=== PATIENT | male | born 1980 | race Two or more races ===

== ENCOUNTER 2019-12-18 19:42 | Inpatient (IN) | payer SELFPAY ==
[2019-12-18] MEDS ORDERED: ACETAMINOPHEN 325 MG TABLET PO ONE (21:39)
[2019-12-18] MEDS ORDERED: NORMAL SALINE 1000 ML 2,700 ML IV ONE (21:39)
--- NOTE | 2019-12-18 21:48 | ER Document Report ---
ED Respiratory Problem - General Chief Complaint: Cough Stated Complaint: COUGH Time Seen by Provider: 12/18/19 21:02 Mode of Arrival: Ambulatory Information source: Patient Notes: 39-year-old male presented to ED for fever cough congestion fatigue for the last 9 to 10 days. He states having clear and yellow sputum. He states he visited his mother on [address] in [place] and she was sick at the time when he came home he started getting sick within a couple days. He states he spoke with his mother recently and she is feeling better. He states he does have a history of diabetes. States he does not smoke he does occasionally drink but does not use any drugs. 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 He states he normally breathes fine but when he came in today his O2 sat was 90% his temperature was 101.6 with elevated pulse. He states he does have low back pain. He states he took Tyleno l about 2 hours before he came in it that was about 3 hours ago. He states he has vomited off and on for the last for 5 days but has not vomited any today. The patient was evaluated during the global Covid 19 pandemic, and that diagnosis was suspected/considered upon their initial presentation. Their evaluation, treatment and testing was consistent with current guidelines for patients who present with complaints or symptoms that may be related to Covid 19. - HPI Patient complains to provider of: Cough, Short of breath, Other - Fatigue fever and vomiting Onset: Other - 9 to 10 days Duration: Continuous Initiating Event: URI, Other - States he visited his mother in [place] about 2 or 3 days before he started to get sick on the 25th Quality of pain: Achy Severity: Moderate Pain Level: 3 Cough: Productive Sputum amount: Small Sputum color: White, Yellow Sputum consistency: Thin Associated symptoms: Congestion, Cough, Fever, PND, Runny nose, Sinus pain/pressure, Short of breath, Other - Vomiting Similar symptoms previously: No Recently seen / treated by doctor: No Past Medical History - General Information source: Patient - Social History Smoking Status: Never Smoker Frequency of alcohol use: Occasional Drug Abuse: None Occupation: Construction Lives with: Alone Family History: Reviewed & Not Pertinent Patient has suicidal ideation: No Patient has homicidal ideation: No - Past Medical History Cardiac Medical History: Reports: None Pulmonary Medical History: Reports: None EENT Medical History: Reports: None Neurological Medical History: Reports: None Endocrine Medical History: Reports: Hx Diabetes Mellitus Type 2 Renal/ Medical History: Reports: None Malignancy Medical History: Reports None GI Medical History: Reports: None Musculoskeletal Medical History: Reports None Skin Medical History: Reports None Psychiatric Medical History: Reports: None Traumatic Medical History: Reports: None Infectious Medical History: Reports: None Surgical Hx: Negative Past Surgical History: Reports: None Review of Systems - Review of Systems Constitutional: Chills, Fever, Recent illness EENT: Nose congestion, Nose discharge, Sinus discharge Cardiovascular: No symptoms reported Respiratory: Cough, Sputum Gastrointestinal: No symptoms reported Genitourinary: No symptoms reported Male Genitourinary: No symptoms reported Musculoskeletal: Back pain Skin: No symptoms reported Hematologic/Lymphatic: No symptoms reported Neurological/Psychological: No symptoms reported -: Yes All other systems reviewed and negative Physical Exam - Vital signs Vitals: Temp Pulse Resp BP Pulse Ox 101.6 F H 115 H 24 H 101/65 90 L 12/18/19 19:47 12/18/19 19:47 12/18/19 19:47 12/18/19 19:47 12/18/19 19:47 Interpretation: Tachycardic, Hypoxic, Tachypneic, Febrile - General General appearance: Appears well, Alert - HEENT Head: Normocephalic, Atraumatic Eyes: Normal Pupils: PERRL - Respiratory Respiratory status: Cyanosis, Tachypnea Chest status: Nontender Breath sounds: Productive cough, Rales Chest palpation: Normal - Cardiovascular Rhythm: Regular Heart sounds: Normal auscultation Murmur: No - Abdominal Inspection: Normal Distension: No distension Bowel sounds: Normal Tenderness: Nontender Organomegaly: No organomegaly - Back Back: Normal, Nontender - Extremities General upper extremity: Normal inspection, Nontender, Normal color, Normal ROM, Normal temperature General lower extremity: Normal inspection, Nontender, Normal color, Normal ROM, Normal temperature, Normal weight bearing. No: Ruth's sign - Neurological Neuro grossly intact: Yes Cognition: Normal Orientation: AAOx4 Peyton Coma Scale Eye Opening: Spontaneous Peyton Coma Scale Verbal: Oriented Maxim Coma Scale Motor: Obeys Commands Peyton Coma Scale Total: 15 Speech: Normal Motor strength normal: LUE, RUE, LLE, RLE Sensory: Normal - Psychological Associated symptoms: Normal affect, Normal mood - Skin Skin Temperature: Warm Skin Moisture: Dry Skin Color: Normal Course - Re-evaluation Re-evalutation: 12/19/19 00:[address] Arreola the hospitalist who has accepted him for admission to the Covid 19 unit. He is aware of his vital signs and he is positive for influenza A. Patient does have bilateral pneumonia O2 sat is 95 with a pulse of 88 respirations between 30 and 40. Patient is on O2 at 4 L nasal cannula. - Vital Signs Vital signs: Temp Pulse Resp BP Pulse Ox 101.6 F H 115 H 24 H 101/65 90 L 12/18/19 19:47 12/18/19 19:47 12/18/19 19:47 12/18/19 19:47 12/18/19 19:47 - Laboratory Result Diagrams: 12/18/19 22:15 12/18/19 22:15 Laboratory results interpreted by me: 12/18/19 12/18/19 12/18/19 22:15 22:15 23:40 Lymph % (Auto) 12.0 L Seg Neutrophils % 81.7 H VBG pH 7.44 H Sodium 133.6 L Glucose 252 H - Diagnostic Test Radiology reviewed: Image reviewed, Reports reviewed - Consults marlen Time consulted: 00:07 Reason for consultation: 12/19/19 00:07 Bilateral pneumonia, influenza A, tachypneic, and febrile x9 days Consulted provider: will see as inpatient Discharge - Discharge Clinical Impression: Influenza A, covid 19 screening Bilateral pneumonia Qualifiers: Pneumonia type: due to unspecified organism Lung location: unspecified part of lung Qualified Code(s): J18.9 - Pneumonia, unspecified organism Disposition: ADMITTED INPATIENT Admitting Provider: Marlen (Hospitalist) Unit Admitted: Medical Floor
[2019-12-18 22:34] LABS: ABSOLUTE LYMPHOCYTES (AUTO) 1.2 10^3/uL (0.5-4.7); ABSOLUTE MONOCYTES (AUTO) 0.6 10^3/uL (0.1-1.4); ABSOLUTE NEUT (AUTO) 8.1 10^3/uL (1.7-8.2); BASOPHILS % (AUTO) 0.1 % (0-2); HEMATOCRIT 42.9 % (37.9-51.0); HEMOGLOBIN 15.4 g/dL (13.5-17.0); MEAN CORPUSCULAR HEMOGLOBIN 31.5 pg (27.0-33.4); MEAN CORPUSCULAR HGB CONC 35.8 g/dL (32.0-36.0); MEAN CORPUSCULAR VOLUME 88 fl (80-97); MONOCYTES % (AUTO) 6.2 % (3-13); PLATELET COUNT 180 10^3/uL (150-450); RED BLOOD COUNT 4.88 10^6/uL (4.35-5.55); RED CELL DISTRIBUTION WIDTH 12.1 % (11.5-14.0); SEGMENTED NEUTROPHILS % (AUTO) 81.7 % (42-78); TOTAL CELLS COUNTED % (AUTO) 100 %; WHITE BLOOD COUNT 9.9 10^3/uL (4.0-10.5)
[2019-12-18 22:48] LABS: A TYPE INFLUENZA AG POSITIVE (NEGATIVE); B INFLUENZA AG NEGATIVE (NEGATIVE)
[2019-12-18 22:56] LABS: ALBUMIN 3.8 g/dL (3.5-5.0); ALKALINE PHOSPHATASE 87 U/L (38-126); ANION GAP 10 (5-19); ASPARTATE AMINO TRANSFERASE 37 U/L (17-59); BILIRUBIN,DIRECT 0.3 mg/dL (0.0-0.4); BILIRUBIN,TOTAL 0.8 mg/dL (0.2-1.3); BLOOD UREA NITROGEN 11 mg/dL (7-20); CALCIUM 8.7 mg/dL (8.4-10.2); CARBON DIOXIDE 25 mmol/L (22-30); CHLORIDE 99 mmol/L (98-107); GLUCOSE 252 mg/dL (75-110); POTASSIUM 4.4 mmol/L (3.6-5.0); TOTAL PROTEIN 6.9 g/dL (6.3-8.2)
[2019-12-18] MEDS ORDERED: OSELTAMIVIR PHOSPHATE 75 MG CAPSULE PO ONE (23:37)
--- NOTE | 2019-12-18 23:43 | RADIOLOGY REPORT (SQ) ---
EXAM DESCRIPTION: XR CHEST 1 VIEW COMPLETED DATE/TME: 12/18/2019 23:01 CLINICAL HISTORY: 39 years, Male, c/o cough and fever COMPARISON: None. NUMBER OF VIEWS: TECHNIQUE: LIMITATIONS: None. FINDINGS: There is infiltrate within the lungs bilaterally, most apparent in the left lower lobe, compatible with pneumonia. No evidence of pleural effusion. The heart and mediastinum are unremarkable. Pulmonary vascularity appears normal. IMPRESSION: Bilateral pneumonia. copyright 2010 [employer]- All Rights Reserved
[2019-12-18 23:53] LABS: VENOUS BLOOD BASE EXCESS -0.5 mmol/L; VENOUS BLOOD HCO3 23.2 mmol/L (20-32); VENOUS BLOOD PCO2 35.2 mmHg (35-63); VENOUS BLOOD PH 7.44 (7.30-7.42)
[2019-12-18] MEDS ORDERED: FUROSEMIDE INJ/PF 20 MG/2 ML SDV IV ONE (23:53)
[2019-12-19] MEDS ORDERED: GUAIFENESIN SYRP 200 MG/10 ML UDC PO PRN (00:25)
[2019-12-19] MEDS ORDERED: DEXTROSE 40% GEL 15 GM TUBE PO PRN ×2 (00:25)
[2019-12-19] MEDS ORDERED: DEXTROSE 50%-WATER 25 GM/50 ML DISP.SYRIN IV PRN ×2 (00:25)
[2019-12-19] MEDS ORDERED: GLUCAGON,HUMAN RECOMB 1 MG INJ IM PRN (00:25)
[2019-12-19] MEDS ORDERED: ACETAMINOPHEN 325 MG TABLET PO PRN (00:25)
[2019-12-19] MEDS ORDERED: MELATONIN 5 MG TABLET PO PRN (00:30)
[2019-12-19] MEDS ORDERED: PROMETHAZINE HCL INJ 25 MG/1 ML VIAL IV PRN (00:30)
[2019-12-19] MEDS ORDERED: MORPHINE SULFATE 10 MG/ML INJ IV PRN ×3 (00:30)
[2019-12-19] MEDS ORDERED: LORAZEPAM INJ 2 MG/1 ML VIAL IV PRN (00:30)
[2019-12-19] MEDS ORDERED: MAGNESIUM HYDROXIDE SUSP 30 ML UDCUP PO PRN (00:30)
[2019-12-19] MEDS ORDERED: MAG HYDROX/AL HYDROX/SIMETH SUSP 30 ML UDCUP PO PRN (00:30)
[2019-12-19] MEDS ORDERED: AZITHROMYCIN INJ 500 MG VIAL IV ONE (02:09)
[2019-12-19] MEDS: CEFTRIAXONE 1 GM/D5W RTU 1 G/50 ML RTUPB IV SCH ×2 (02:11→09:50)
[2019-12-19] MEDS: RINGERS SOLUTION,LACTATED 1,000 ML IV PRN ×2 (02:12→10:10)
[2019-12-19] MEDS: AZITHROMYCIN 500 MG in DEXTROSE 5%-WATER 250 ML IV SCH ×2 (03:16→11:00)
--- NOTE | 2019-12-19 04:04 | PDOC H&P ---
History of Present Illness Admission Date/PCP: 12/19/2019 00:05 No local PCP Patient complains of: Cough History of Present Illness: LUIS HOOVER is a 39 year old male who presented the emergency room with a 10-day history of cough. He admits developing a cough 10 days ago that has been persistent since onset. His cough is productive of small amounts of clear to whitish-yellow thin phlegm-like sputum. He admits that his cough has been associated with a subjective fever, generalized malaise, fatigue and dyspnea. His cough and dyspnea are worsened with exertion. He further admits that his cough has been accompanied by nausea with vomiting, rhinorrhea and nasal/sinus congestion with postnasal discharge. He denies other associated or accompanying signs and symptoms. He denies prior similar episodes. He has not identified any additional aggravating or ameliorating factors for his cough. In the emergency room he was found to be mildly hypotensive, tachycardic, febrile and hypoxic with a lactic acid of 1.1. He tested positive for influenza A and x-ray showed a bilateral interstitial pneumonia at both bases. His respirations were noted to be somewhat labored and his O2 sat was 90% on room air. He was treated with nasal cannula oxygen at 4 L/min and his O2 sat [place] to 95% he was subsequently admitted to the hospital for further evaluation and treatment. Coronavirus testing was performed. Past Medical History Cardiac Medical History: Denies: Coronary Artery Disease, DVT, Hyperlipidema, Hypertension Pulmonary Medical History: Denies: Asthma, Chronic Obstructive Pulmonary Disease (COPD) EENT Medical History: Denies: Cataracts, Ears - Hearing aids Neurological Medical History: Denies: Migraine, Seizures Endocrine Medical History: Reports: Diabetes Mellitus Type 2 Denies: Diabetes Mellitus Type 1, Hyperthyroidism, Hypothyroidism Renal/ Medical History: Denies: Chronic Kidney Disease, Nephrolithiasis Malignancy Medical History: Reports: None GI Medical History: Denies: Cirrhosis, Hepatitis Musculoskeltal Medical History: Denies: Arthritis, Gout Skin Medical History: Denies: Eczema, Psoriasis Psychiatric Medical History: Denies: Alcohol Dependency, Substance Abuse, Tobacco Dependency Traumatic Medical History: Reports: None Hematology: Denies: Anemia, Bleeding Tendencies Infectious Medical History: Reports: None Past Surgical History Past Surgical History: Reports: None Social History Information Source: Patient Lives with: Alone Smoking Status: Never Smoker Electronic Cigarette use?: No Frequency of Alcohol Use: Rare Hx Recreational Drug Use: No Drugs: None Hx Prescription Drug Abuse: No - Advance Directive Resuscitation Status: Full Code Surrogate healthcare decision maker:: Clinton Colindres Family History Family History: denies: CAD, DM, Hypertension, Malignancy Parental Family History Reviewed: Yes Children Family History Reviewed: No Sibling(s) Family History Reviewed.: Yes Medication/Allergy Allergies/Adverse Reactions: No Known Allergies Allergy (Unverified 12/19/19 00:13) Review of Systems Constitutional: PRESENT: fatigue, fever(s), other - Generalized malaise. ABSENT: chills Eyes: ABSENT: visual disturbances, other - Eye pain Ears: ABSENT: hearing changes, other - Ear pain Nose, Mouth, and Throat: PRESENT: as per HPI, other - Nasal congestion, rhinorrhea and postnasal drip. ABSENT: headache(s), sore throat Cardiovascular: PRESENT: as per HPI, dyspnea on exertion. ABSENT: chest pain Respiratory: PRESENT: as per HPI, cough, dyspnea, sputum Gastrointestinal: PRESENT: nausea, vomiting. ABSENT: abdominal pain, constipation, diarrhea Musculoskeletal: PRESENT: as per HPI, back pain - With generalized malaise. ABSENT: joint swelling Integumentary: ABSENT: pruritus, rash Neurological: ABSENT: confusion, convulsions, focal weakness, memory loss, syncope Psychiatric: ABSENT: anxiety, depression Endocrine: ABSENT: cold intolerance, heat intolerance, polydipsia, polyphagia, polyuria Hematologic/Lymphatic: ABSENT: easy bleeding, easy bruising Allergic/Immunologic: ABSENT: seasonal rhinorrhea Physical Exam Vital Signs: Temp Pulse Resp BP Pulse Ox 101.6 F H 115 H 24 H 101/65 90 L 12/18/19 19:47 12/18/19 19:47 12/18/19 19:47 12/18/19 19:47 12/18/19 19:47 Intake & Output 12/17/19 12/18/19 12/19/19 23:59 23:59 23:59 Weight 90 kg General appearance: PRESENT: cooperative, mild distress - Using accessory muscles of respiration to., other - On supplemental oxygen at the time my evaluation Head exam: PRESENT: atraumatic, normocephalic Eye exam: ABSENT: conjunctival injection, scleral icterus Ear exam: PRESENT: normal external ear exam. ABSENT: bleeding, drainage Mouth exam: PRESENT: dry mucosa, neck supple Neck exam: ABSENT: thyromegaly, tracheal deviation Respiratory exam: PRESENT: accessory muscle use, rales - Minimal scattered coarse rales at bilateral bases, symmetrical Cardiovascular exam: PRESENT: RRR. ABSENT: clicks, gallop, rubs Pulses: PRESENT: normal radial pulses, normal dorsalis pedis pul Vascular exam: PRESENT: normal capillary refill. ABSENT: pallor GI/Abdominal exam: PRESENT: normal bowel sounds, soft Rectal exam: PRESENT: deferred Extremities exam: ABSENT: joint swelling, pedal edema Musculoskeletal exam: ABSENT: deformity, dislocation Neurological exam: PRESENT: alert, CN II-XII grossly intact. ABSENT: oriented to person, oriented to place, oriented to time, oriented to situation, motor sensory deficit Psychiatric exam: PRESENT: appropriate affect, normal mood Skin exam: PRESENT: dry, intact, warm. ABSENT: jaundice, rash, urticaria Results Laboratory Results: 12/18/19 22:15 12/18/19 22:15 12/18/19 12/18/19 12/18/19 22:15 22:15 22:15 WBC 9.9 RBC 4.88 Hgb 15.4 Hct 42.9 MCV 88 MCH 31.5 MCHC 35.8 RDW 12.1 Plt Count 180 Seg Neutrophils % 81.7 H VBG pH VBG pCO2 VBG HCO3 VBG Base Excess Sodium 133.6 L Potassium 4.4 Chloride 99 Carbon Dioxide 25 Anion Gap 10 BUN 11 Creatinine 0.70 Est GFR ( Amer) > 60 Glucose 252 H Lactic Acid 1.1 Calcium 8.7 Total Bilirubin 0.8 AST 37 Alkaline Phosphatase 87 Total Protein 6.9 Albumin 3.8 12/18/19 23:40 WBC RBC Hgb Hct MCV MCH MCHC RDW Plt Count Seg Neutrophils % VBG pH 7.44 H VBG pCO2 35.2 VBG HCO3 23.2 VBG Base Excess -0.5 Sodium Potassium Chloride Carbon Dioxide Anion Gap BUN Creatinine Est GFR ( Amer) Glucose Lactic Acid Calcium Total Bilirubin AST Alkaline Phosphatase Total Protein Albumin Impressions: Chest X-Ray 12/18/19 23:01 IMPRESSION: Bilateral pneumonia. copyright 2010 [employer]- All Rights Reserved Assessment and Plan - Diagnosis (1) Multifocal pneumonia Is this a current diagnosis for this admission?: Yes (2) Acute respiratory failure with hypoxia Is this a current diagnosis for this admission?: Yes (3) Influenza A Is this a current diagnosis for this admission?: Yes (4) Diabetes mellitus type 2 in obese Is this a current diagnosis for this admission?: Yes - Plan Summary Summary: Patient is admitted to the medical floor where he will receive routine supportive and symptomatic cares. He will be treated for a community-acquired pneumonia utilizing Rocephin and Zithromax IV. He will receive supplemental oxygen via nasal cannula and/or noninvasive airway pressure support devices such as BiPAP or CPAP in order to maintain adequate oxygen saturation. Before meals and at bedtime Accu-Cheks will be performed with sliding scale insulin to cover hyperglycemia and a hypoglycemic protocol in place. Patient will receive a diabetic restricted diet. His usual medications will be added to his therapeutic regiment as soon as his medication list has been verified and reconciled. CBCs, metabolic profiles and magnesium levels will be obtained as appropriate. ABGs and/or VBG's will be obtained as needed. Patient will use morphine sulfate 2 to 4 mg IV every 2 hours as needed for pain using a sliding scale for dosing. He may also receive Ativan 1 mg IV every 4 hours as needed anxiety or restlessness. Serial lactic acid levels will be performed. - Time Time Spent with patient: Less than 15 minutes Medications reviewed and adjusted accordingly: Yes Anticipated discharge: Home - Inpatient Certification Based on my medical assessment, after consideration of the patient's comorbiditi es, presenting symptoms, or acuity I expect that the services needed warrant INPATIENT care.: Yes I certify that my determination is in accordance with my understanding of [facility]'s requirements for reasonable and necessary INPATIENT services [42 CFR 412.3e].: Yes Medical Necessity: Need Close Monitoring Due to Risk of Patient Decompensation, Risk of Complication if Not Cared For in Hospital
[2019-12-19] MEDS: HEPARIN SOD (PORCINE) 5,000 UNIT/ML 1 ML VIAL SUBCUT SCH ×3 (05:04→22:25)
[2019-12-19 05:06] LABS: APPEARANCE,URINE CLEAR; BILIRUBIN,URINE NEGATIVE (NEGATIVE); COLOR,URINE YELLOW; GLUCOSE, URINE 150 mg/dL (NEGATIVE); KETONES,URINE 20 mg/dL (NEGATIVE); PROTEIN,URINE 30 mg/dL (NEGATIVE); URINE SPECIFIC GRAVITY 1.009; UROBILINOGEN,URINE NEGATIVE mg/dL (<2.0)
--- NOTE | 2019-12-19 08:00 | EKG REPORT ---
SEVERITY:- NORMAL ECG - SINUS RHYTHM : Confirmed by: Gogo Aguilar MD 19-Dec-2019 08:00:28
[2019-12-19] MEDS: IBUPROFEN 800 MG TABLET PO PRN ×2 (08:03→16:47)
[2019-12-19] MEDS: INSULIN REG, HUMAN 100 UNIT/ML 3 ML VIAL (PYX) SUBCUT PRN ×3 (08:03→22:29)
[2019-12-19] MEDS: FAMOTIDINE 20 MG TABLET PO SCH ×2 (09:50→22:25)
[2019-12-19 10:27] LABS: ABSOLUTE LYMPHOCYTES (AUTO) 0.8 10^3/uL (0.5-4.7); ABSOLUTE MONOCYTES (AUTO) 0.5 10^3/uL (0.1-1.4); ABSOLUTE NEUT (AUTO) 9.1 10^3/uL (1.7-8.2); BASOPHILS % (AUTO) 0.1 % (0-2); HEMATOCRIT 38.2 % (37.9-51.0); HEMOGLOBIN 13.9 g/dL (13.5-17.0); LYMPHOCYTES % (AUTO) 7.5 % (13-45); MEAN CORPUSCULAR HEMOGLOBIN 31.7 pg (27.0-33.4); MEAN CORPUSCULAR HGB CONC 36.3 g/dL (32.0-36.0); MEAN CORPUSCULAR VOLUME 87 fl (80-97); PLATELET COUNT 176 10^3/uL (150-450); RED BLOOD COUNT 4.38 10^6/uL (4.35-5.55); SEGMENTED NEUTROPHILS % (AUTO) 87.4 % (42-78); TOTAL CELLS COUNTED % (AUTO) 100 %; WHITE BLOOD COUNT 10.4 10^3/uL (4.0-10.5)
[2019-12-19 10:54] LABS: ALBUMIN 3.1 g/dL (3.5-5.0); ALKALINE PHOSPHATASE 81 U/L (38-126); ANION GAP 8 (5-19); ASPARTATE AMINO TRANSFERASE 34 U/L (17-59); BILIRUBIN,TOTAL 0.6 mg/dL (0.2-1.3); BLOOD UREA NITROGEN 9 mg/dL (7-20); CALCIUM 7.9 mg/dL (8.4-10.2); CARBON DIOXIDE 23 mmol/L (22-30); CHLORIDE 103 mmol/L (98-107); GLUCOSE 219 mg/dL (75-110); POTASSIUM 3.6 mmol/L (3.6-5.0)
[2019-12-19] MEDS ORDERED: NORMAL SALINE 1000 ML 1,000 ML IV PRN (12:49)
--- NOTE | 2019-12-19 12:50 | PDOC PROGRESS REPORT ---
Subjective Progress Note for:: 12/19/19 Subjective:: 39 year old male who presented the emergency room with a 10-day history of cough. He admits developing a cough 10 days ago that has been persistent since onset. His cough is productive of small amounts of clear to whitish-yellow thin phlegm-like sputum. He admits that his cough has been associated with a subjective fever, generalized malaise, fatigue and dyspnea. His cough and dyspnea are worsened with exertion. He further admits that his cough has been accompanied by nausea with vomiting, rhinorrhea and nasal/sinus congestion with postnasal discharge. He denies other associated or accompanying signs and symptoms. He denies prior similar episodes. He has not identified any additional aggravating or ameliorating factors for his cough. In the emergency room he was found to be mildly hypotensive, tachycardic, febrile and hypoxic with a lactic acid of 1.1. He tested positive for influenza A and x-ray showed a bilateral interstitial pneumonia at both bases. His respirations were noted to be somewhat labored and his O2 sat was 90% on room air. He was treated with nasal cannula oxygen at 4 L/min and his O2 sat [place] to 95% he was subsequently admitted to the hospital for further evaluation and treatment. Coronavirus testing was performed. [id number] admitted for multifocal pneumonia blood pressures are stable he has a T-max of 102 this morning. Coronavirus testing is pending is positive for influenza A. Presently on IV ceftriaxone and IV Zithromax. Cultures are pending. Patient is also receiving IV fluids at this time. Reason For Visit: MULTIFOCAL PNEUMONIA,INFLUENZA A POSITIVE,DIABETES Physical Exam Vital Signs: Temp Pulse Resp BP Pulse Ox 98.9 F 85 28 H 94/54 L 91 L 12/19/19 11:35 12/19/19 11:35 12/19/19 11:35 12/19/19 11:35 12/19/19 11:35 Intake & Output 12/18/19 12/19/19 12/20/19 06:59 06:59 06:59 Intake Total 3240 1050 Output Total 300 Balance 2940 1050 Weight 90 kg General appearance: PRESENT: no acute distress, obese Head exam: PRESENT: atraumatic Eye exam: PRESENT: PERRLA Mouth exam: PRESENT: moist, tongue midline Teeth exam: PRESENT: poor dentation Neck exam: ABSENT: carotid bruit, JVD, lymphadenopathy, thyromegaly Respiratory exam: PRESENT: decreased breath sounds Cardiovascular exam: PRESENT: RRR. ABSENT: diastolic murmur, rubs, systolic murmur GI/Abdominal exam: PRESENT: normal bowel sounds, soft. ABSENT: distended, guarding, mass, organolmegaly, rebound, tenderness Rectal exam: PRESENT: deferred Extremities exam: PRESENT: full ROM. ABSENT: calf tenderness, clubbing, pedal edema Neurological exam: PRESENT: alert, awake, oriented to person, oriented to place, oriented to time, oriented to situation, CN II-XII grossly intact. ABSENT: motor sensory deficit Psychiatric exam: PRESENT: appropriate affect, normal mood. ABSENT: homicidal ideation, suicidal ideation Results Laboratory Results: 12/19/19 09:59 12/19/19 09:59 12/18/19 12/18/19 12/18/19 22:15 22:15 22:15 WBC 9.9 RBC 4.88 Hgb 15.4 Hct 42.9 MCV 88 MCH 31.5 MCHC 35.8 RDW 12.1 Plt Count 180 Seg Neutrophils % 81.7 H VBG pH VBG pCO2 VBG HCO3 VBG Base Excess Sodium 133.6 L Potassium 4.4 Chloride 99 Carbon Dioxide 25 Anion Gap 10 BUN 11 Creatinine 0.70 Est GFR ( Amer) > 60 Glucose 252 H Lactic Acid 1.1 Calcium 8.7 Magnesium Total Bilirubin 0.8 AST 37 Alkaline Phosphatase 87 Total Protein 6.9 Albumin 3.8 Urine Color Urine Appearance Urine pH Ur Specific [place] Urine Protein Urine Glucose (UA) Urine Ketones Urine Blood Urine RBC (Auto) 12/18/19 12/19/19 12/19/19 23:40 04:44 09:59 WBC 10.4 RBC 4.38 Hgb 13.9 Hct 38.2 MCV 87 MCH 31.7 MCHC 36.3 H RDW 12.0 Plt Count 176 Seg Neutrophils % 87.4 H VBG pH 7.44 H VBG pCO2 35.2 VBG HCO3 23.2 VBG Base Excess -0.5 Sodium Potassium Chloride Carbon Dioxide Anion Gap BUN Creatinine Est GFR ( Amer) Glucose Lactic Acid Calcium Magnesium Total Bilirubin AST Alkaline Phosphatase Total Protein Albumin Urine Color YELLOW Urine Appearance CLEAR Urine pH 6.0 Ur Specific [place] 1.009 Urine Protein 30 H Urine Glucose (UA) 150 H Urine Ketones 20 H Urine Blood NEGATIVE Urine RBC (Auto) 0 12/19/19 09:59 WBC RBC Hgb Hct MCV MCH MCHC RDW Plt Count Seg Neutrophils % VBG pH VBG pCO2 VBG HCO3 VBG Base Excess Sodium 133.5 L Potassium 3.6 Chloride 103 Carbon Dioxide 23 Anion Gap 8 BUN 9 Creatinine 0.52 Est GFR ( Amer) > 60 Glucose 219 H Lactic Acid Calcium 7.9 L Magnesium 1.8 Total Bilirubin 0.6 AST 34 Alkaline Phosphatase 81 Total Protein 6.0 L Albumin 3.1 L Urine Color Urine Appearance Urine pH Ur Specific [place] Urine Protein Urine Glucose (UA) Urine Ketones Urine Blood Urine RBC (Auto) Impressions: Chest X-Ray 12/18/19 23:01 IMPRESSION: Bilateral pneumonia. copyright 2011 [employer]- All Rights Reserved Assessment and Plan - Diagnosis (1) Multifocal pneumonia Is this a current diagnosis for this admission?: Yes Plan: 12/19/2019-patient admitted with multifocal pneumonia most likely community- acquired pneumonia. Presently on IV ceftriaxone and azithromycin. Blood cultures and sputum cultures are pending. (2) Acute respiratory failure with hypoxia Is this a current diagnosis for this admission?: Yes Plan: 12/19/2019-patient admitted with acute respiratory failure with hypoxia pulse ox today is 91% on 2 L. Not in distress comfortable in the bed communicating well. Plan is to continue the present management at this time. (3) Influenza A Is this a current diagnosis for this admission?: Yes Plan: 12/19/2019-patient is positive for influenza A to start giving him on Tamiflu. (4) Diabetes mellitus type 2 in obese Is this a current diagnosis for this admission?: Yes Plan: 12/19/2019-patient has history of type 2 diabetes mellitus latest blood sugar is 216. Plan is to check her hemoglobin A1c and do the blood sugars before meals and at bedtime. - Plan Summary Summary: Patient is admitted to the medical floor where he will receive routine supportive and symptomatic cares. He will be treated for a community-acquired pneumonia utilizing Rocephin and Zithromax IV. He will receive supplemental oxygen via nasal cannula and/or noninvasive airway pressure support devices such as BiPAP or CPAP in order to maintain adequate oxygen saturation. Before meals and at bedtime Accu-Cheks will be performed with sliding scale insulin to cover hyperglycemia and a hypoglycemic protocol in place. Patient will receive a diabetic restricted diet. His usual medications will be added to his therapeutic regiment as soon as his medication list has been verified and recon ciled. CBCs, metabolic profiles and magnesium levels will be obtained as appropriate. ABGs and/or VBG's will be obtained as needed. Patient will use morphine sulfate 2 to 4 mg IV every 2 hours as needed for pain using a sliding scale for dosing. He may also receive Ativan 1 mg IV every 4 hours as needed anxiety or restlessness. Serial lactic acid levels will be performed.
[2019-12-19] MEDS: OSELTAMIVIR PHOSPHATE 75 MG CAPSULE PO SCH ×2 (13:52→22:25)
[2019-12-19] MEDS ORDERED: IBUPROFEN 800 MG TABLET PO ONE (19:00)
[2019-12-20] MEDS: NORMAL SALINE 1000 ML 1,000 ML IV PRN ×3 (02:10→18:45)
[2019-12-20 06:32] LABS: ABSOLUTE LYMPHOCYTES (AUTO) 1.1 10^3/uL (0.5-4.7); ABSOLUTE MONOCYTES (AUTO) 0.6 10^3/uL (0.1-1.4); ABSOLUTE NEUT (AUTO) 11.1 10^3/uL (1.7-8.2); BASOPHILS % (AUTO) 0.2 % (0-2); HEMOGLOBIN 13.9 g/dL (13.5-17.0); LYMPHOCYTES % (AUTO) 8.6 % (13-45); MEAN CORPUSCULAR HEMOGLOBIN 31.3 pg (27.0-33.4); MEAN CORPUSCULAR HGB CONC 35.6 g/dL (32.0-36.0); MEAN CORPUSCULAR VOLUME 88 fl (80-97); MONOCYTES % (AUTO) 4.5 % (3-13); PLATELET COUNT 206 10^3/uL (150-450); RED BLOOD COUNT 4.45 10^6/uL (4.35-5.55); RED CELL DISTRIBUTION WIDTH 12.1 % (11.5-14.0); SEGMENTED NEUTROPHILS % (AUTO) 86.7 % (42-78); TOTAL CELLS COUNTED % (AUTO) 100 %; WHITE BLOOD COUNT 12.8 10^3/uL (4.0-10.5)
[2019-12-20 06:52] LABS: ALBUMIN 3.1 g/dL (3.5-5.0); ALKALINE PHOSPHATASE 82 U/L (38-126); ANION GAP 9 (5-19); ASPARTATE AMINO TRANSFERASE 30 U/L (17-59); BILIRUBIN,TOTAL 0.7 mg/dL (0.2-1.3); BLOOD UREA NITROGEN 8 mg/dL (7-20); CALCIUM 8.4 mg/dL (8.4-10.2); CARBON DIOXIDE 24 mmol/L (22-30); CHLORIDE 105 mmol/L (98-107); CHOLESTEROL 105.89 mg/dL (0-200); GLUCOSE 146 mg/dL (75-110); POTASSIUM 3.5 mmol/L (3.6-5.0); TOTAL PROTEIN 6.1 g/dL (6.3-8.2); TRIGLYCERIDES 152 mg/dL (<150)
[2019-12-20 07:03] LABS: DIRECT LDL 56 mg/dL (<100)
[2019-12-20 07:06] LABS: VLDL CHOLESTEROL 30.4 mg/dL (10-31)
[2019-12-20] MEDS: HEPARIN SOD (PORCINE) 5,000 UNIT/ML 1 ML VIAL SUBCUT SCH ×2 (07:06→14:15)
[2019-12-20 08:15] LABS: ARTERIAL BLOOD BASE EXCESS -2.5 mmol/L; ARTERIAL BLOOD H2CO3 0.78 mmol/L (1.05-1.35); ARTERIAL BLOOD HCO3 19.1 mmol/L (20-24); ARTERIAL BLOOD PH 7.49 (7.35-7.45); ARTERIAL BLOOD PO2 43.5 mmHg (80-100); ARTERIAL BLOOD TOTAL CO2 19.9 mmol/L (23-27)
[2019-12-20 08:16] LABS: ARTERIAL BLOOD FIO2 4
--- NOTE | 2019-12-20 08:37 | PDOC PROGRESS REPORT ---
Subjective Progress Note for:: 12/20/19 Subjective:: 39 year old male who presented the emergency room with a 10-day history of cough. He admits developing a cough 10 days ago that has been persistent since onset. His cough is productive of small amounts of clear to whitish-yellow thin phlegm-like sputum. He admits that his cough has been associated with a subjective fever, generalized malaise, fatigue and dyspnea. His cough and dyspnea are worsened with exertion. He further admits that his cough has been accompanied by nausea with vomiting, rhinorrhea and nasal/sinus congestion with postnasal discharge. He denies other associated or accompanying signs and symptoms. He denies prior similar episodes. He has not identified any additional aggravating or ameliorating factors for his cough. In the emergency room he was found to be mildly hypotensive, tachycardic, febrile and hypoxic with a lactic acid of 1.1. He tested positive for influenza A and x-ray showed a bilateral interstitial pneumonia at both bases. His respirations were noted to be somewhat labored and his O2 sat was 90% on room air. He was treated with nasal cannula oxygen at 4 L/min and his O2 sat [place] to 95% he was subsequently admitted to the hospital for further evaluation and treatment. Coronavirus testing was performed. 12/[id number] admitted for multifocal pneumonia blood pressures are stable he has a T-max of 102 this morning. Coronavirus testing is pending is positive for influenza A. Presently on IV ceftriaxone and IV Zithromax. Cultures are pending. Patient is also receiving IV fluids at this time. [id number] male admitted with multifocal pneumonia is still having persistent fever temp of 100.5 this morning, WBC is going up since last night his oxygen requirements are worsening pulse ox is 60% on 4 L this morning and later on on 100% nonrebreather pulse ox is 84%. That ABG was done on nonrebreather with 100% oxygen pH is 7.49, PCO2 26, PO2 43.5, bicarb 19 with oxygen saturation of 84%. Stat chest x-ray was requested on examination patient is tachypneic tachycardic looks more anxious. Call was placed to Dr. Campos he requested me to change the antibiotics to meropenem and linezolid, to do stat CRP, ferritin, d-dimer, procalcitonin. Patient is accepted to intensive care unit. Patient made a BiPAP as soon as possible may be needed intubation the later on. He is high suspicion for coronavirus positivity. Reason For Visit: MULTIFOCAL PNEUMONIA,INFLUENZA A POSITIVE,DIABETES Physical Exam Vital Signs: Temp Pulse Resp BP Pulse Ox 100.1 F 99 28 H 129/78 H 81 L 12/20/19 07:39 12/20/19 07:39 12/20/19 07:39 12/20/19 07:39 12/20/19 07:39 Intake & Output 12/19/19 12/20/19 12/21/19 06:59 06:59 06:59 Intake Total 3240 2995 Output Total 300 Balance 2940 2995 Weight 90 kg 90.2 kg General appearance: PRESENT: no acute distress, well-developed Head exam: PRESENT: atraumatic Eye exam: PRESENT: PERRLA Mouth exam: PRESENT: neck supple Teeth exam: PRESENT: poor dentation Neck exam: ABSENT: carotid bruit, JVD, lymphadenopathy, thyromegaly Respiratory exam: PRESENT: decreased breath sounds, tachypnea Cardiovascular exam: PRESENT: tachycardia GI/Abdominal exam: PRESENT: normal bowel sounds, soft. ABSENT: distended, guarding, mass, organolmegaly, rebound, tenderness Rectal exam: PRESENT: deferred Extremities exam: PRESENT: full ROM. ABSENT: calf tenderness, clubbing, pedal edema Neurological exam: PRESENT: alert, awake, oriented to person, oriented to place, oriented to time, oriented to situation, CN II-XII grossly intact. ABSENT: motor sensory deficit Psychiatric exam: PRESENT: appropriate affect, normal mood. ABSENT: homicidal ideation, suicidal ideation Results Laboratory Results: 12/20/19 05:37 12/20/19 05:37 12/19/19 12/19/19 12/20/19 09:59 09:59 05:37 WBC 10.4 12.8 H RBC 4.38 4.45 Hgb 13.9 13.9 Hct 38.2 39.0 MCV 87 88 MCH 31.7 31.3 MCHC 36.3 H 35.6 RDW 12.0 12.1 Plt Count 176 206 Seg Neutrophils % 87.4 H 86.7 H Carbonic Acid HCO3/H2CO3 Ratio ABG pH ABG pCO2 ABG pO2 ABG HCO3 ABG O2 Saturation ABG Base Excess FiO2 Sodium 133.5 L Potassium 3.6 Chloride 103 Carbon Dioxide 23 Anion Gap 8 BUN 9 Creatinine 0.52 Est GFR ( Amer) > 60 Glucose 219 H Calcium 7.9 L Magnesium 1.8 Total Bilirubin 0.6 AST 34 Alkaline Phosphatase 81 Total Protein 6.0 L Albumin 3.1 L Triglycerides Cholesterol LDL Cholesterol Direct VLDL Cholesterol HDL Cholesterol 12/20/19 12/20/19 12/20/19 05:37 05:37 08:00 WBC RBC Hgb Hct MCV MCH MCHC RDW Plt Count Seg Neutrophils % Carbonic Acid 0.78 L HCO3/H2CO3 Ratio 24:1 ABG pH 7.49 H ABG pCO2 26.0 L ABG pO2 43.5 L ABG HCO3 19.1 L ABG O2 Saturation 84.0 L ABG Base Excess -2.5 FiO2 4 Sodium 137.9 Potassium 3.5 L Chloride 105 Carbon Dioxide 24 Anion Gap 9 BUN 8 Creatinine 0.58 Est GFR ( Amer) > 60 Glucose 146 H Calcium 8.4 Magnesium 2.0 Cancelled Total Bilirubin 0.7 AST 30 Alkaline Phosphatase 82 Total Protein 6.1 L Albumin 3.1 L Triglycerides 152 H Cholesterol 105.89 LDL Cholesterol Direct 56 VLDL Cholesterol 30.4 HDL Cholesterol 26 L Assessment and Plan - Diagnosis (1) Multifocal pneumonia Is this a current diagnosis for this admission?: Yes Plan: 12/19/2019-patient admitted with multifocal pneumonia most likely community- acquired pneumonia. Presently on IV ceftriaxone and azithromycin. Blood cultures and sputum cultures are pending. 12/20/19--patient admitted with multifocal pneumonia on IV Rocephin, IV Zithromax his oxygen requirements are worsening and he is tachypneic tachycardic and he is also influenza A positive receiving Tamiflu coronavirus testing is pending because of the deterioration of the respiratory status call was placed to ICU and spoke to Dr. Campos he agreed to take the patient and requested me to change the antibiotics to meropenem and linezolid. Patient may need BiPAP once he is transferred to intensive care. (2) Acute respiratory failure with hypoxia Is this a current diagnosis for this admission?: Yes Plan: 12/19/2019-patient admitted with acute respiratory failure with hypoxia pulse ox today is 91% on 2 L. Not in distress comfortable in the bed communicating well. Plan is to continue the present management at this time. 12/20/2019-patient admitted with acute respite failure with hypoxia and a pulse ox is 84% on nonrebreather ABG shows PO2 of 45. Patient is going to be transferred to intensive care. Acute respiratory failure with hypoxia most likely secondary to multifocal pneumonia may be patient is developing ARDS. (3) Influenza A Is this a current diagnosis for this admission?: Yes Plan: 12/19/2019-patient is positive for influenza A to start giving him on Tamiflu. (4) Diabetes mellitus type 2 in obese Is this a current diagnosis for this admission?: Yes Plan: 12/19/2019-patient has history of type 2 diabetes mellitus latest blood sugar is 216. Plan is to check her hemoglobin A1c and do the blood sugars before meals and at bedtime. 12/20/2019-patient has history of type 2 diabetes mellitus hemoglobin A1c is 10.5 today. Blood sugars of 146. Patient has insulin sliding scale diet exercise weight loss lifestyle modifications discussed with the patient dietary consult will be requested. Patient may need a basal insulin. - Plan Summary Summary: Patient is admitted to the medical floor where he will receive routine supportive and symptomatic cares. He will be treated for a community-acquired pneumonia utilizing Rocephin and Zithromax IV. He will receive supplemental oxygen via nasal cannula and/or noninvasive airway pressure support devices such as BiPAP or CPAP in order to maintain adequate oxygen saturation. Before meals and at bedtime Accu-Cheks will be performed with sliding scale insulin to cover hyperglycemia and a hypoglycemic protocol in place. Patient will receive a diabetic restricted diet. His usual medications will be added to his therapeutic regiment as soon as his medication list has been verified and reconciled. CBCs, metabolic profiles and magnesium levels will be obtained as appropriate. ABGs and/or VBG's will be obtained as needed. Patient will use morphine sulfate 2 to 4 mg IV every 2 hours as needed for pain using a sliding scale for dosing. He may also receive Ativan 1 mg IV every 4 hours as needed anxiety or restlessness. Serial lactic acid levels will be performed.
--- NOTE | 2019-12-20 08:47 | RADIOLOGY REPORT (SQ) ---
EXAM DESCRIPTION: CHEST SINGLE VIEW IMAGES COMPLETED DATE/TIME: 12/20/2019 8:35 am REASON FOR STUDY: resp failure COMPARISON: 12/18/2019 EXAM PARAMETERS: NUMBER OF VIEWS: One view. TECHNIQUE: Single frontal radiographic view of the chest acquired. RADIATION DOSE: NA LIMITATIONS: None. FINDINGS: LUNGS AND PLEURA: Progression of bilateral infiltrates more marked in the lung periphery. There is central airspace disease as well. MEDIASTINUM AND HILAR STRUCTURES: No masses. Contour normal. HEART AND VASCULAR STRUCTURES: Heart normal in size. Normal vasculature. BONES: No acute findings. HARDWARE: None in the chest. OTHER: No other significant finding. IMPRESSION: Increasing bilateral infiltrates. TECHNICAL DOCUMENTATION: JOB ID: [id number] 2010 [employer]- All Rights Reserved Reading location - IP/workstation name: [email or web address]
[2019-12-20] MEDS ORDERED: PROPOFOL 1,000 MG/100 ML INFUS..BTL IV ONE (08:49)
[2019-12-20] MEDS ORDERED: NOREPINEPHRINE BITARTRATE INJ/PF 4 MG/4 ML SDV IV ONE (09:18)
[2019-12-20] MEDS: ETOMIDATE INJ/PF 20 MG/10 ML SDV IV ONE ×2 (09:35→13:00)
[2019-12-20] MEDS: FENTANYL CITRATE INJ/PF 100 MCG/2 ML AMPUL ONE ×2 (09:35→13:00)
[2019-12-20] MEDS: PROPOFOL 1,000 MG/100 ML INFUS..BTL IV PRN ×6 (09:40→23:50)
[2019-12-20] MEDS ORDERED: ROCURONIUM BROMIDE INJ 50 MG/5 ML VIAL IV ONE ×3 (09:59→15:04)
[2019-12-20] MEDS ORDERED: MEROPENEM 1 GM VIAL IV SCH ×2 (10:00→14:00)
[2019-12-20] MEDS ORDERED: HYDROXYCHLOROQUINE SULFATE 200 MG TABLET PO SCH (10:00)
[2019-12-20 10:07] LABS: C-REACTIVE PROTEIN 331.2 mg/L (<10.0)
[2019-12-20] MEDS ORDERED: MIDAZOLAM 2 MG/2 ML INJ ONE (10:13)
--- NOTE | 2019-12-20 10:24 | Operative Report ---
<APOLLO CHUA - Last Filed: 12/20/19 10:18> Bedside Procedure - History of Present Illness History of Present Illness: Procedure: Central line placement Indication: Vasoactive medications, IV fluids, lab draws Procedure extractor plant operator: Apollo Chua Attending physician: Dr. Willard Consent: The procedure was performed emergently and the permission was implied because of the emergent nature. Procedure summary: The [facility] central line insertion practice form was completed by RN. A timeout was performed. My hands were washed immediately prior to the procedure. I wore surgical cap, mask with protective eyewear, full gown and sterile gloves throughout the procedure. The patient was placed in Trendelenburg position. RIGHT chest region was prepped using chlorhexidine scrub and draped in sterile fashion using a full drape. Sterile probe cover was placed on ultrasound probe. The medial and lateral heads of the sternocleidomastoid muscle were identified as was the carotid pulse. The internal jugular vein was identified using ultrasound. Anesthesia was achieved over the vein using 3 cc of 1% lidocaine. Using real-time out of plane guidance, the introducer needle was inserted into the internal jugular vein under direct ultrasound visualization. Venous blood was withdrawn. The syringe was removed and a guidewire was advanced into the introducer needle. The guidewire was visualized in the internal jugular vein by ultrasound. A small incision was made at the skin surface with a scalpel and the introducer needle was exchanged for a dilator over the guidewire. After appropriate dilation was obtained, the dilator was exchanged over a wire for a 7 Mongolian, 20 cm central venous catheter. The wire was removed and the catheter was sutured in place at 15 cm. A IO patch was placed and a sterile Sorbaview shield was placed over the catheter at the insertion site. The patient tolerated the procedure well without any hemodynamic compromise. At time of procedure completion, all ports aspirated and flushed properly. Postprocedure x-ray shows central line in proper place. Estimated blood loss is approximately 5 cc. Indication for Procedure: Vasoactive medication, IV fluids, antibiotics, lab draws Provider: APOLLO CHUA - Central Line Right Time completed: 10:15 Consent obtained: No - Emergency Consent Central line pre-insertion: Sterile PPE donned, Betadine prep applied, Chloraprep applied, Sterile drapes applied Central line lumen type: Triple Anesthetic type: 1% Lidocaine mL's of anesthesia: 3 Ultrasound guided: Yes CM at insertion site: 15 Line secured with sutures: Yes Central line post-insertion: Blood return from lumens, Biopatch applied, Sutured, Sterile dressing applied Number of attempts: 1 Complications: No <MARNIE WILLARD - Last Filed: 12/20/19 17:14> Bedside Procedure - History of Present Illness History of Present Illness: I personally was present and supervised procedure. Done under ultrasound guidance no complications, agree with above Date: 12/20/19
[2019-12-20] MEDS ORDERED: RINGERS SOLUTION,LACTATED 1,000 ML IV PRN (10:46)
[2019-12-20] MEDS ORDERED: FENTANYL CITRATE INJ/PF 100 MCG/2 ML AMPUL IV PRN (10:46)
[2019-12-20] MEDS ORDERED: HYDROMORPHONE HCL INJ/PF 2 MG/ML AMPULE ONE (11:00)
[2019-12-20] MEDS: HYDROMORPHONE HCL INJ/PF 2 MG/ML AMPULE IV PRN ×2 (11:00→17:10)
[2019-12-20] MEDS ORDERED: PHARMACY COMMUNICATION ORDER MC NR (11:00)
--- NOTE | 2019-12-20 11:16 | RADIOLOGY REPORT (SQ) ---
EXAM DESCRIPTION: CHEST SINGLE VIEW IMAGES COMPLETED DATE/TIME: 12/20/2019 11:07 am REASON FOR STUDY: ET Tube and Central Line Placement COMPARISON: Earlier the same day. EXAM PARAMETERS: NUMBER OF VIEWS: One view. TECHNIQUE: Single frontal radiographic view of the chest acquired. RADIATION DOSE: NA LIMITATIONS: None. FINDINGS: LUNGS AND PLEURA: Endotracheal tube, NG tube and central line have been placed. All are i n satisfactory position. NG tube tip is well below the GE junction. Endotracheal tube lies 3.9 cm a padmini the alhaji. Central line overlies the proximal SVC. No pneumothorax. Extensive bilateral airs pace disease remains. MEDIASTINUM AND HILAR STRUCTURES: No masses. Contour normal. HEART AND VASCULAR STRUCTURES: Heart normal in size. Normal vasculature. BONES: No acute findings. HARDWARE: None in the chest. OTHER: No other significant finding. IMPRESSION: Interval placement of endotracheal tube, NG tube and central line as described. No pneu mothorax. Support lines and tubes are in satisfactory position. Persistent diffuse bilateral pneumo stan. TECHNICAL DOCUMENTATION: JOB ID: [id number] 2010 [employer]- All Rights Reserved Reading location - IP/workstation name: [email or web address]
[2019-12-20] MEDS ORDERED: MELATONIN 5 MG TABLET NG PRN (11:30)
[2019-12-20] MEDS ORDERED: ASCORBIC ACID 500 MG TABLET PO ONE (11:30)
[2019-12-20] MEDS ORDERED: ACETAMINOPHEN 325 MG TABLET NG PRN (11:30)
[2019-12-20] MEDS ORDERED: ASCORBIC ACID 500 MG TABLET NG ONE (11:30)
[2019-12-20] MEDS ORDERED: DEXTROSE 40% GEL 15 GM TUBE NG PRN ×2 (11:30)
[2019-12-20 11:51] LABS: ARTERIAL BLOOD H2CO3 1.08 mmol/L (1.05-1.35); ARTERIAL BLOOD HCO3 18.2 mmol/L (20-24); ARTERIAL BLOOD O2 SATURATION 94.8 % (94-98); ARTERIAL BLOOD PH 7.32 (7.35-7.45); ARTERIAL BLOOD PO2 78.4 mmHg (80-100); ARTERIAL BLOOD TOTAL CO2 19.3 mmol/L (23-27)
[2019-12-20 11:52] LABS: ARTERIAL BLOOD FIO2 100%
[2019-12-20] MEDS ORDERED: ZINC SULFATE 220 MG CAPSULE PO SCH (12:00)
[2019-12-20] MEDS ORDERED: CHOLECALCIFEROL (D3) 1,000 UNIT (25 MCG) TABLET PO SCH (12:00)
[2019-12-20] MEDS: LINEZOLID 600 MG/300 ML RTUPB IV SCH ×2 (13:24→21:52)
[2019-12-20] MEDS: OSELTAMIVIR PHOSPHATE 75 MG CAPSULE NG SCH ×2 (14:15→21:49)
[2019-12-20] MEDS: HYDROXYCHLOROQUINE SULFATE 200 MG TABLET NG SCH ×2 (14:16→21:50)
[2019-12-20] MEDS: THIAMINE HCL 250 MG in NORMAL SALINE 250 ML IV SCH (14:19)
[2019-12-20] MEDS ORDERED: LORAZEPAM INJ 2 MG/1 ML VIAL IV ONE (14:19)
[2019-12-20] MEDS ORDERED: HYDROMORPHONE HCL INJ/PF 2 MG/ML AMPULE IV ONE (14:19)
[2019-12-20] MEDS: MINERAL OIL/PETROLATUM,WHITE OPH OINT 3.5 GM OU SCH ×2 (15:25→21:47)
[2019-12-20] MEDS: FAMOTIDINE 20 MG TABLET NG SCH ×2 (15:25→21:48)
[2019-12-20] MEDS: ZINC SULFATE 220 MG CAPSULE NG SCH (15:26)
[2019-12-20] MEDS ORDERED: DEXTROSE 5%-WATER 250 ML with NOREPINEPHRINE BITARTRATE 4 MG IV PRN ×2 (16:17)
[2019-12-20] MEDS: MEROPENEM 1 GM in NORMAL SALINE 50 ML IV SCH ×2 (16:56→21:52)
[2019-12-20] MEDS: CHOLECALCIFEROL (D3) 1,000 UNIT (25 MCG) TABLET NG SCH (16:58)
[2019-12-20] MEDS ORDERED: METHYLPREDNISOLONE INJ 125 MG/2 ML SDV IV ONE (17:55)
[2019-12-20] MEDS ORDERED: ASCORBIC ACID 500 MG TABLET NG SCH (18:00)
[2019-12-20] MEDS ORDERED: ASCORBIC ACID 500 MG TABLET PO SCH (18:00)
[2019-12-20] MEDS ORDERED: ACETAMINOPHEN SOLN 325 MG/10.15 ML UDCUP NG PRN (18:09)
[2019-12-20] MEDS ORDERED: ACETAMINOPHEN SOLN 325 MG/10.15 ML UDCUP PO ONE (18:09)
[2019-12-20] MEDS: AZITHROMYCIN 500 MG in DEXTROSE 5%-WATER 250 ML IV SCH (20:03)
[2019-12-20] MEDS: ASCORBIC ACID 500 MG TABLET NG SCH (20:17)
[2019-12-20] MEDS: ENOXAPARIN SODIUM INJ 100 MG/1 ML DISP.SYRIN SUBCUT SCH (20:25)
--- NOTE | 2019-12-20 21:46 | EKG REPORT ---
SEVERITY:- BORDERLINE ECG - SINUS RHYTHM BORDERLINE T ABNORMALITIES, INFERIOR LEADS : Confirmed by: Gogo Aguilar MD 20-Dec-2019 21:45:37
[2019-12-20] MEDS: METHYLPREDNISOLONE INJ 125 MG/2 ML SDV IV SCH (21:48)
[2019-12-20] MEDS ORDERED: METHYLPREDNISOLONE INJ 40 MG/1 ML SDV IV SCH (22:00)
--- NOTE | 2019-12-20 22:17 | CRITICAL CARE ADMISSION REPORT ---
HPI Date:: 12/20/19 Time:: 09:00 Reason for ICU Reason:: Severe hypoxia with influenza A HPI: 39-year-old male who was admitted 12/19/2019 with cough shortness of demetrius ath. Placed on the floor with escalation in need for oxygen culminating in BiPAP therapy. He was influenza A positive. He was also noted to be hypotensive and tachycardic in the emergency room. Due to his increased respiratory rate and his distress he was urgently brought to the ICU where a limited review of systems could be done. The patient was extremely short of breath and could only answer 1 or 2 word like sentences and was extremely dyspneic. SARS, 2-CoViD19 protective PPE was donned by prior to his arrival with preparations for intubation. He was promptly intubated under rapid sequence intubation with protective respiratory bag. Amatory markers including d-dimer were extremely elevated. 39 year old male who presented the emergency room with a 10-day history of cough. He developed this cough 10 days ago that has been persistent since onset. His cough is productive of small amounts of clear to whitish-yellow thin phlegm-like sputum. He admits that his cough has been associated with a subjective fever, generalized malaise, fatigue and dyspnea. His cough and dyspnea are worsened with exertion. He further admits that his cough has been accompanied by nausea with vomiting, rhinorrhea and nasal/sinus congestion with postnasal discharge. He denies other associated or accompanying signs and symptoms. He denies prior similar episodes. He has not identified any additi onal aggravating or ameliorating factors for his cough. In the emergency room he was found to be mildly hypotensive, tachycardic, febrile and hypoxic with a lactic acid of 1.1. He tested positive for influenza A and x-ray showed a bilateral interstitial pneumonia at both bases. His respirations were noted to be somewhat labored and his O2 sat was 90% on room air. He was treated with nasal cannula oxygen at 4 L/min and his O2 sat [place] to 95% he was subsequently admitted to the hospital for further evaluation and treatment. Coronavirus testing was performed. History obtained from:: EMR and hospitalist staff - Diagnosis/Plan (1) Acute respiratory failure with hypoxia Is this a current diagnosis for this admission?: Yes (2) COVID-19 virus detected Is this a current diagnosis for this admission?: Yes (3) Bilateral pneumonia Qualifiers: Pneumonia type: due to unspecified organism Lung location: unspecified part of lung Qualified Code(s): J18.9 - Pneumonia, unspecified organism Is this a current diagnosis for this admission?: Yes (4) Diabetes mellitus type 2 in obese Is this a current diagnosis for this admission?: Yes (5) Influenza A Is this a current diagnosis for this admission?: Yes (6) Multifocal pneumonia Is this a current diagnosis for this admission?: Yes - . Plan Summary: Patient is extremely ill. He required urgent intubation under controlled setting. SARS, 2-CoViD19 noted to be detected and positive after intubation. In addition he has influenza A. Given his state after intubation we he was placed in prone position. He was started on Plaquenil and broad-spectrum antibiotics including linezolid. X-ray shows multifocal pneumonia ultrasound showed significant groundglass and B-lines consistent with viral pneumonitis. Of note, he only had tachycardia without hypotension. His inflammatory markers are indicative of an acute cytokine storm and I have asked pharmacy to obtain TOCILIZUMAB Currently, in this pandemic crisis there is limited evidenced-based data but significant anecdotal data and current standard of therapy at this date. Following from major tertiary centers in from experience we have started him on the perfunctory treatment with Plaquenil vitamin C, vitamin D as well as other supplemental therapies. All the therapies which have been tried pronating patient's has been the most significant therapeutic tool The patient's obesity and type 2 diabetes he matches the subset of patients with significant prognostic mortality. His neutrophile lymphocyte ratio is significantly elevated as well as his ferritin. He had appears to have a recruitable lung in response to PEEP. This would make him an H type phenotype/genotype Continue pronating and evaluate for the safety for supination given his size. All areas of contact were protected during the Karina process. Past Medical History Cardiac Medical History: Reports: None Denies: Coronary Artery Disease, DVT, Hyperlipidema, Hypertension Pulmonary Medical History: Reports: None Denies: Asthma, Chronic Obstructive Pulmonary Disease (COPD) EENT Medical History: Reports: None Denies: Cataracts, Ears - Hearing aids Neurological Medical History: Reports: None Denies: Migraine, Seizures Endocrine Medical History: Reports: Diabetes Mellitus Type 2 Denies: Diabetes Mellitus Type 1, Hyperthyroidism, Hypothyroidism Renal/ Medical History: Reports: None Denies: Chronic Kidney Disease, Nephrolithiasis Malignancy Medical History: Reports: None GI Medical History: Reports: None Denies: Cirrhosis, Hepatitis Musculoskeltal Medical History: Reports: None Denies: Arthritis, Gout Skin Medical History: Reports: None Denies: Eczema, Psoriasis Psychiatric Medical History: Reports: None Denies: Alcohol Dependency, Substance Abuse, Tobacco Dependency Traumatic Medical History: Reports: None Hematology: Denies: Anemia, Bleeding Tendencies Infectious Medical History: Reports: None Past Surgical History Past Surgical History: Reports: None Social/Family History - Social History Lives with: Alone Smoking Status: Never Smoker Frequency of Alcohol Use: Rare Hx Recreational Drug Use: No Drugs: None Hx Prescription Drug Abuse: No - Medication/Allergies Home Medications: No Home Medications 12/19/19 Allergies/Adverse Reactions: No Known Allergies Allergy (Unverified 12/19/19 00:13) Review of Systems ROS unobtainable: Due to mental status, Other - In respiratory distress Constitutional: PRESENT: as per HPI, fever(s) Physical Exam Vital Signs: Temp Pulse Resp BP Pulse Ox 102.4 F H 101 H 17 110/64 87 L 12/20/19 20:00 12/20/19 20:00 12/20/19 20:00 12/20/19 20:00 12/20/19 20:00 Intake & Output 12/19/19 12/20/19 12/21/19 06:59 06:59 06:59 Intake Total 3240 3618 2929.5 Output Total 300 1535 Balance 2940 3618 1394.5 Weight 90 kg 90.2 kg 90.2 kg Weight/Height Weight 90.2 kg Height 5 ft 8 in General appearance: PRESENT: disheveled, morbidly obese, severe distress Exam: Older appearing 39-year-old male in extreme respiratory distress he is awake however lethargic speaking through nurse nursing officer he endorses that he is tiring Neck exam: ABSENT: JVD, lymphadenopathy, thyromegaly, tracheal deviation Respiratory exam: PRESENT: accessory muscle use, tachypnea, other - Lung Sounds not auscultated secondary to the confines of PPE and poor auditory capability of disposable stethoscope. ABSENT: unlabored Cardiovascular exam: PRESENT: tachycardia, other - Cardiac sounds not auscultated secondary to the confines of PPE and poor auditory capability of disposable stethoscope. ABSENT: irregular rhythm Pulses: PRESENT: +1 pedal pulses bilateral Vascular exam: PRESENT: normal capillary refill. ABSENT: pallor GI/Abdominal exam: PRESENT: soft, other - Gastric sounds not auscultated secondary to the confines of PPE and poor auditory capability of disposable stethoscope. ABSENT: ascites, distended, guarding, rigid, tenderness Rectal exam: PRESENT: deferred Extremities exam: ABSENT: pedal edema, tenderness Musculoskeletal exam: ABSENT: deformity, dislocation Neurological exam: PRESENT: altered, awake, CN II-XII grossly intact. ABSENT: motor sensory deficit Psychiatric exam: PRESENT: anxious Focused psych exam: PRESENT: psychomotor agitation, restlessness Skin exam: PRESENT: dry, intact, normal color, warm. ABSENT: cyanosis, mottled, rash Laboratory/Radiographs Laboratory Results: 12/20/19 05:37 12/20/19 05:37 12/20/19 12/20/19 12/20/19 05:37 05:37 05:37 WBC 12.8 H RBC 4.45 Hgb 13.9 Hct 39.0 MCV 88 MCH 31.3 MCHC 35.6 RDW 12.1 Plt Count 206 Seg Neutrophils % 86.7 H Carbonic Acid HCO3/H2CO3 Ratio ABG pH ABG pCO2 ABG pO2 ABG HCO3 ABG O2 Saturation ABG Base Excess FiO2 Sodium 137.9 Potassium 3.5 L Chloride 105 Carbon Dioxide 24 Anion Gap 9 BUN 8 Creatinine 0.58 Est GFR ( Amer) > 60 Glucose 146 H Lactic Acid Calcium 8.4 Magnesium 2.0 Cancelled Ferritin Total Bilirubin 0.7 AST 30 Alkaline Phosphatase 82 C-Reactive Protein Total Protein 6.1 L Albumin 3.1 L Triglycerides 152 H Cholesterol 105.89 LDL Cholesterol Direct 56 VLDL Cholesterol 30.4 HDL Cholesterol 26 L 12/20/19 12/20/19 12/20/19 05:37 08:00 11:43 WBC RBC Hgb Hct MCV MCH MCHC RDW Plt Count Seg Neutrophils % Carbonic Acid 0.78 L 1.08 HCO3/H2CO3 Ratio 24:1 16:1 ABG pH 7.49 H 7.32 L ABG pCO2 26.0 L 36.0 ABG pO2 43.5 L 78.4 L ABG HCO3 19.1 L 18.2 L ABG O2 Saturation 84.0 L 94.8 ABG Base Excess -2.5 -7.0 FiO2 4 100% Sodium Potassium Chloride Carbon Dioxide Anion Gap BUN Creatinine Est GFR ( Amer) Glucose Lactic Acid Calcium Magnesium Ferritin 9850.00 H Total Bilirubin AST Alkaline Phosphatase C-Reactive Protein 331.2 H Total Protein Albumin Triglycerides Cholesterol LDL Cholesterol Direct VLDL Cholesterol HDL Cholesterol 12/20/19 11:45 WBC RBC Hgb Hct MCV MCH MCHC RDW Plt Count Seg Neutrophils % Carbonic Acid HCO3/H2CO3 Ratio ABG pH ABG pCO2 ABG pO2 ABG HCO3 ABG O2 Saturation ABG Base Excess FiO2 Sodium Potassium Chloride Carbon Dioxide Anion Gap BUN Creatinine Est GFR ( Amer) Glucose Lactic Acid 0.8 Calcium Magnesium Ferritin Total Bilirubin AST Alkaline Phosphatase C-Reactive Protein Total Protein Albumin Triglycerides Cholesterol LDL Cholesterol Direct VLDL Cholesterol HDL Cholesterol 12/18/19 22:07 Throat Throat Culture - Final NORMAL MAGDALENE Impressions: Chest X-Ray 12/20/19 10:21 IMPRESSION: Interval placement of endotracheal tube, NG tube and central line as described. No pneumothorax. Support lines and tubes are in satisfactory position. Persistent diffuse bilateral pneumonia. All labs, radiographs, diagnostic studies and EKGs were personally reviewed: Yes In addition, reports of radiographic and diagnostic studies were read: Yes Critical Time Critical Time (minutes): 160 -: The care of a critically ill patient is dynamic. This note represents a static moment in the admission process. Orders and treatments may be given simultaneously and urgently, and time is not administrative representative of the treatment process. This patient requires Critical Care secondary to life threatening organ or limb dysfunction. Without Critical Care services, the patient is at risk for increased mortality and morbidity.
[2019-12-20 22:28] LABS: APPEARANCE,URINE CLEAR; BILIRUBIN,URINE NEGATIVE (NEGATIVE); COLOR,URINE YELLOW; GLUCOSE, URINE >=500 mg/dL (NEGATIVE); KETONES,URINE 20 mg/dL (NEGATIVE); LEUKOCYTE ESTERASE,URINE NEGATIVE (NEGATIVE); NITRITE,URINE NEGATIVE (NEGATIVE); PROTEIN,URINE 100 mg/dL (NEGATIVE); URINE SPECIFIC GRAVITY 1.017
[2019-12-20] MEDS: INSULIN REG, HUMAN 100 UNIT/ML 3 ML VIAL (PYX) SUBCUT PRN (22:47)
[2019-12-21] MEDS: PROPOFOL 1,000 MG/100 ML INFUS..BTL IV PRN ×6 (02:35→16:25)
[2019-12-21] MEDS: ASCORBIC ACID 500 MG TABLET NG SCH ×3 (02:56→17:35)
[2019-12-21] MEDS: HYDROMORPHONE HCL INJ/PF 2 MG/ML AMPULE IV PRN ×3 (02:58→14:24)
[2019-12-21 03:29] LABS: ABSOLUTE LYMPHOCYTES (AUTO) 0.6 10^3/uL (0.5-4.7); ABSOLUTE MONOCYTES (AUTO) 0.2 10^3/uL (0.1-1.4); ABSOLUTE NEUT (AUTO) 8.5 10^3/uL (1.7-8.2); BASOPHILS % (AUTO) 0.3 % (0-2); HEMATOCRIT 37.4 % (37.9-51.0); HEMOGLOBIN 13.4 g/dL (13.5-17.0); LYMPHOCYTES % (AUTO) 6.6 % (13-45); MEAN CORPUSCULAR HEMOGLOBIN 31.9 pg (27.0-33.4); MEAN CORPUSCULAR HGB CONC 35.9 g/dL (32.0-36.0); MEAN CORPUSCULAR VOLUME 89 fl (80-97); MONOCYTES % (AUTO) 2.4 % (3-13); PLATELET COUNT 236 10^3/uL (150-450); RED BLOOD COUNT 4.21 10^6/uL (4.35-5.55); RED CELL DISTRIBUTION WIDTH 12.1 % (11.5-14.0); SEGMENTED NEUTROPHILS % (AUTO) 90.7 % (42-78); TOTAL CELLS COUNTED % (AUTO) 100 %; WHITE BLOOD COUNT 9.4 10^3/uL (4.0-10.5)
[2019-12-21 03:39] LABS: ANION GAP 14 (5-19); BLOOD UREA NITROGEN 8 mg/dL (7-20); CALCIUM 8.1 mg/dL (8.4-10.2); CARBON DIOXIDE 18 mmol/L (22-30); CHLORIDE 106 mmol/L (98-107); GLUCOSE 256 mg/dL (75-110); POTASSIUM 4.2 mmol/L (3.6-5.0)
[2019-12-21 04:03] LABS: ARTERIAL BLOOD BASE EXCESS -8.9 mmol/L; ARTERIAL BLOOD FIO2 80%; ARTERIAL BLOOD H2CO3 1.15 mmol/L (1.05-1.35); ARTERIAL BLOOD HCO3 17.3 mmol/L (20-24); ARTERIAL BLOOD O2 SATURATION 97.5 % (94-98); ARTERIAL BLOOD PCO2 38.1 mmHg (35-45); ARTERIAL BLOOD PH 7.27 (7.35-7.45); ARTERIAL BLOOD PO2 111.5 mmHg (80-100); ARTERIAL BLOOD TOTAL CO2 18.4 mmol/L (23-27)
[2019-12-21 04:09] LABS: PHOSPHORUS 4.4 mg/dL (2.5-4.5)
[2019-12-21 04:13] LABS: INTERNATIONAL RATION (INR) 1.16; PROTHROMBIN TIME 14.9 SEC (11.4-15.4)
[2019-12-21 04:14] LABS: FIBRINOGEN 831 mg/dL (209-497); PARTIAL THROMBOPLASTIN TIME 26.6 SEC (23.5-35.8)
[2019-12-21 04:16] LABS: D-DIMER 1.62 ug/mL (0.00-0.50)
[2019-12-21] MEDS: MINERAL OIL/PETROLATUM,WHITE OPH OINT 3.5 GM OU SCH ×3 (06:00→21:53)
[2019-12-21] MEDS: INSULIN REG, HUMAN 100 UNIT/ML 3 ML VIAL (PYX) SUBCUT PRN ×3 (06:00→18:47)
[2019-12-21] MEDS: MEROPENEM 1 GM in NORMAL SALINE 50 ML IV SCH ×3 (06:01→21:52)
[2019-12-21] MEDS: NORMAL SALINE 1000 ML 1,000 ML IV PRN ×2 (06:06→17:43)
[2019-12-21] MEDS: CHOLECALCIFEROL (D3) 1,000 UNIT (25 MCG) TABLET NG SCH (09:54)
[2019-12-21] MEDS: FAMOTIDINE 20 MG TABLET NG SCH ×2 (09:54→21:52)
[2019-12-21] MEDS: METHYLPREDNISOLONE INJ 125 MG/2 ML SDV IV SCH ×2 (09:55→21:52)
[2019-12-21] MEDS: ENOXAPARIN SODIUM INJ 100 MG/1 ML DISP.SYRIN SUBCUT SCH ×2 (09:55→21:52)
[2019-12-21] MEDS: HYDROXYCHLOROQUINE SULFATE 200 MG TABLET NG SCH ×2 (09:56→17:39)
[2019-12-21] MEDS: ZINC SULFATE 220 MG CAPSULE NG SCH (09:57)
[2019-12-21] MEDS: OSELTAMIVIR PHOSPHATE 75 MG CAPSULE NG SCH ×2 (09:57→21:54)
[2019-12-21] MEDS ORDERED: HYDROXYCHLOROQUINE SULFATE 200 MG TABLET PO SCH (10:00)
[2019-12-21] MEDS: LINEZOLID 600 MG/300 ML RTUPB IV SCH ×2 (10:02→21:52)
[2019-12-21] MEDS: AZITHROMYCIN 500 MG in DEXTROSE 5%-WATER 250 ML IV SCH (10:02)
[2019-12-21] MEDS: THIAMINE HCL 250 MG in NORMAL SALINE 250 ML IV SCH (12:10)
[2019-12-21] MEDS ORDERED: LORAZEPAM INJ 2 MG/1 ML VIAL ONE (12:20)
[2019-12-21] MEDS ORDERED: LORAZEPAM INJ 2 MG/1 ML VIAL IV ONE (13:00)
[2019-12-21] MEDS ORDERED: ROCURONIUM BROMIDE INJ 50 MG/5 ML VIAL IV ONE (14:43)
[2019-12-21] MEDS: HYDROMORPHONE HCL 30 MG/60 ML RTUINJ IV PRN (17:33)
--- NOTE | 2019-12-21 20:34 | PDOC CRITICAL CARE PROG REPORT ---
General Date:: 12/21/19 ICU Day:: 2 Ventilator Day:: 2 Hospital Day:: 6 Resuscitation Status: Full Code Events in the past 12 to 24 Hours:: Patient urgently intubated and placed in prone position secondary to severe hypo nancie related to influenza A and SARS, 2-CoViD19 Prone he has dramatically improved his oxygenation and he has now been weaned to 70%. His PEEP is now down to 10. He has a type H phenotype and responded to recruitment. His compliance has been good. Review of systems relevant to events:: Inflammatory markers are severely elevated are improving. Several febrile spikes with diaphoresis last evening and is now been hypothermic. Calcitonin is not elevated significantly Reason for ICU Addmission:: Severe hypoxia with SARS, 2-CoViD19 and influenza A - Medications: Medications reviewed and adjusted accordingly: Yes Physical Exam Vital Signs: Temp Pulse Resp BP Pulse Ox 99.0 F 95 22 H 145/83 H 95 12/21/19 20:00 12/21/19 20:00 12/21/19 14:00 12/21/19 17:29 12/21/19 18:00 Intake & Output 12/20/19 12/21/19 12/22/19 06:59 06:59 06:59 Intake Total 3618 4868.5 2455.5 Output Total 3960 1995 Balance 3618 908.5 460.5 Weight 90.2 kg 88.6 kg Weight/Height Weight 88.6 kg Height 5 ft 8 in General appearance: PRESENT: no acute distress, obese Exam: Intubated and prone 39-year-old male who is obese appearing no acute distress heavily sedated secondary to the need for no agitation during pronating Eye exam: PRESENT: conjunctival injection, other - Active eye care is present and intact. ABSENT: periorbital swelling Teeth exam: PRESENT: poor dentation Neck exam: PRESENT: other - Is in neutral position. ABSENT: lymphadenopathy, tracheal deviation Respiratory exam: PRESENT: unlabored, other - Lung sounds not auscultated secondary to the confines of PPE and poor auditory capability of disposable stethoscope. ABSENT: accessory muscle use, tachypnea Cardiovascular exam: PRESENT: tachycardia, other - Heart sounds not auscultated secondary to the confines of PPE and poor auditory capability of disposable stethoscope Pulses: PRESENT: +1 pedal pulses bilateral Vascular exam: PRESENT: normal capillary refill. ABSENT: pallor - Gastric sounds not auscultated secondary to the confines of PPE and poor auditory capability of disposable stethoscope. Also patient is prone so abdominal exam unable to be performed Rectal exam: PRESENT: deferred Gentrourinary exam: PRESENT: indwelling catheter Extremities exam: ABSENT: +1 edema Musculoskeletal exam: ABSENT: deformity, dislocation Neurological exam: PRESENT: altered - Fully sedated RASTs -2 to -3 Skin exam: PRESENT: dry, intact, warm, other - All contact point areas have protection devices in place [address] as well. ABSENT: cyanosis, rash Tubes/Lines: PRESENT: Endotracheal Tube, Central Line, Arterial Catheter - No gastric tube, Rojo type urinary catheter Laboratory/Radiographs Laboratory Results: 12/21/19 03:10 12/21/19 03:10 12/20/19 12/20/19 12/21/19 22:10 22:10 03:10 WBC RBC Hgb Hct MCV MCH MCHC RDW Plt Count Seg Neutrophils % Carbonic Acid HCO3/H2CO3 Ratio ABG pH ABG pCO2 ABG pO2 ABG HCO3 ABG O2 Saturation ABG Base Excess Methemoglobin 0.6 FiO2 Sodium 137.8 Potassium 4.2 Chloride 106 Carbon Dioxide 18 L Anion Gap 14 BUN 8 Creatinine 0.46 L Est GFR ( Amer) > 60 Glucose 256 H Lactic Acid Calcium 8.1 L Phosphorus Magnesium Ferritin Ammonia C-Reactive Protein Urine Color YELLOW Urine Appearance CLEAR Urine pH 5.0 Ur Specific [place] 1.017 Urine Protein 100 H Urine Glucose (UA) >=500 H Urine Ketones 20 H Urine Blood NEGATIVE Urine Nitrite NEGATIVE Ur Leukocyte Esterase NEGATIVE Urine WBC (Auto) 2 Urine RBC (Auto) 1 12/21/19 12/21/19 12/21/19 03:10 03:10 03:10 WBC 9.4 RBC 4.21 L Hgb 13.4 L Hct 37.4 L MCV 89 MCH 31.9 MCHC 35.9 RDW 12.1 Plt Count 236 Seg Neutrophils % 90.7 H Carbonic Acid 1.15 HCO3/H2CO3 Ratio 15:1 ABG pH 7.27 L ABG pCO2 38.1 ABG pO2 111.5 H ABG HCO3 17.3 L ABG O2 Saturation 97.5 ABG Base Excess -8.9 Methemoglobin FiO2 80% Sodium Potassium Chloride Carbon Dioxide Anion Gap BUN Creatinine Est GFR ( Amer) Glucose Lactic Acid Calcium Phosphorus Magnesium Ferritin Ammonia 9.8 C-Reactive Protein Urine Color Urine Appearance Urine pH Ur Specific [place] Urine Protein Urine Glucose (UA) Urine Ketones Urine Blood Urine Nitrite Ur Leukocyte Esterase Urine WBC (Auto) Urine RBC (Auto) 12/21/19 12/21/19 12/21/19 03:10 03:10 03:10 WBC RBC Hgb Hct MCV MCH MCHC RDW Plt Count Seg Neutrophils % Carbonic Acid HCO3/H2CO3 Ratio ABG pH ABG pCO2 ABG pO2 ABG HCO3 ABG O2 Saturation ABG Base Excess Methemoglobin FiO2 Sodium Potassium Chloride Carbon Dioxide Anion Gap BUN Creatinine Est GFR ( Amer) Glucose Lactic Acid 0.9 Calcium Phosphorus 4.4 Magnesium 2.0 Ferritin 8240.00 H Ammonia C-Reactive Protein 353.2 H Urine Color Urine Appearance Urine pH Ur Specific [place] Urine Protein Urine Glucose (UA) Urine Ketones Urine Blood Urine Nitrite Ur Leukocyte Esterase Urine WBC (Auto) Urine RBC (Auto) 12/21/19 03:10 Creatine Kinase 593 H Impressions: Chest X-Ray 12/20/19 10:21 IMPRESSION: Interval placement of endotracheal tube, NG tube and central line as described. No pneumothorax. Support lines and tubes are in satisfactory position. Persistent diffuse bilateral pneumonia. All labs, radiographs, diagnostic studies and EKGs were personally reviewed: Yes In addition, reports of radiographic and diagnostic studies were read: Yes Assessment and Plan - Diagnosis (1) Acute respiratory failure with hypoxia Is this a current diagnosis for this admission?: Yes (2) COVID-19 virus detected Is this a current diagnosis for this admission?: Yes (3) Bilateral pneumonia Qualifiers: Pneumonia type: due to unspecified organism Lung location: unspecified part of lung Qualified Code(s): J18.9 - Pneumonia, unspecified organism Is this a current diagnosis for this admission?: Yes (4) Diabetes mellitus type 2 in obese Is this a current diagnosis for this admission?: Yes (5) Influenza A Is this a current diagnosis for this admission?: Yes (6) Multifocal pneumonia Is this a current diagnosis for this admission?: Yes Plan Summary: Patient appears to be improving well from his initial hypoxic event. Continue in prone position until we can reduce his FiO2 to 50%. Typically, proning is done for up to 18 hours. Given his and dramatic improv ement I am reticent to supinate him too soon. We will attempt to get his FiO2 to 50% PEEP at 10 and attempt supine positioning in the morning. Even his elevated d-dimer is which is seen with SARS, 2-CoViD19 we have placed him on full supportive treatment of Lovenox. He is on Plaquenil and all the supplementary medications to support oxygenation- coupling disruption of the hemoglobin molecule--hopefully vitamin C will add to this improvement. He is started on enteral nutrition appears to be tolerating it well. Full observation of contact points to prevent pressure sores will need to be maintained. Critical Time Critical Time (minutes): 60 Level of Care: ICU -: 1. The care of a critical patient is a dynamic process. This note is a electroplating sales representative synopsis but static in nature. The timeframe for treatments given in order is not necessarily the actual time these treatments may have been done. 2. This patient requires critical care secondary to ongoing requirements for therapy not offered or safe outside the critical care environment. Transfer to a lower level of care will result in altered life or limb morbidity and mortality. 3. Multidisciplinary rounds completed. 4. ABCDE bundle addressed.
[2019-12-21] MEDS: MIDAZOLAM HCL 50 MG/100 ML RTUINJ IV PRN (21:55)
[2019-12-22] MEDS: INSULIN REG, HUMAN 100 UNIT/ML 3 ML VIAL (PYX) SUBCUT PRN ×4 (00:37→23:53)
[2019-12-22] MEDS: MIDAZOLAM HCL 50 MG/100 ML RTUINJ IV PRN ×5 (01:00→23:13)
[2019-12-22] MEDS: ASCORBIC ACID 500 MG TABLET NG SCH ×3 (02:30→17:31)
[2019-12-22] MEDS: NORMAL SALINE 1000 ML 1,000 ML IV PRN ×2 (04:09→14:03)
[2019-12-22 04:47] LABS: HEMATOCRIT 35.8 % (37.9-51.0); HEMOGLOBIN 12.5 g/dL (13.5-17.0); MEAN CORPUSCULAR HEMOGLOBIN 31.1 pg (27.0-33.4); MEAN CORPUSCULAR VOLUME 89 fl (80-97); PLATELET COUNT 329 10^3/uL (150-450); RED BLOOD COUNT 4.03 10^6/uL (4.35-5.55); RED CELL DISTRIBUTION WIDTH 12.5 % (11.5-14.0); WHITE BLOOD COUNT 8.4 10^3/uL (4.0-10.5)
[2019-12-22 04:52] LABS: APPEARANCE,URINE CLEAR; BILIRUBIN,URINE NEGATIVE (NEGATIVE); COLOR,URINE YELLOW; GLUCOSE, URINE >=500 mg/dL (NEGATIVE); KETONES,URINE 80 mg/dL (NEGATIVE); LEUKOCYTE ESTERASE,URINE NEGATIVE (NEGATIVE); NITRITE,URINE NEGATIVE (NEGATIVE); PROTEIN,URINE 100 mg/dL (NEGATIVE); URINE SPECIFIC GRAVITY 1.038
[2019-12-22 05:06] LABS: ANION GAP 5 (5-19); BLOOD UREA NITROGEN 14 mg/dL (7-20); CALCIUM 8.3 mg/dL (8.4-10.2); CARBON DIOXIDE 24 mmol/L (22-30); CHLORIDE 111 mmol/L (98-107); GLUCOSE 294 mg/dL (75-110)
[2019-12-22] MEDS: MINERAL OIL/PETROLATUM,WHITE OPH OINT 3.5 GM OU SCH ×3 (06:02→23:04)
[2019-12-22] MEDS: MEROPENEM 1 GM in NORMAL SALINE 50 ML IV SCH ×3 (06:03→23:06)
[2019-12-22] MEDS: ZINC SULFATE 220 MG CAPSULE NG SCH (09:55)
[2019-12-22] MEDS: CHOLECALCIFEROL (D3) 1,000 UNIT (25 MCG) TABLET NG SCH (09:56)
[2019-12-22] MEDS: FAMOTIDINE 20 MG TABLET NG SCH ×2 (10:03→23:08)
[2019-12-22] MEDS: HYDROXYCHLOROQUINE SULFATE 200 MG TABLET NG SCH ×2 (10:04→17:33)
[2019-12-22] MEDS: OSELTAMIVIR PHOSPHATE 75 MG CAPSULE NG SCH ×2 (10:04→23:08)
[2019-12-22] MEDS: METHYLPREDNISOLONE INJ 125 MG/2 ML SDV IV SCH ×2 (10:08→23:08)
[2019-12-22] MEDS: ENOXAPARIN SODIUM INJ 100 MG/1 ML DISP.SYRIN SUBCUT SCH ×2 (10:10→23:04)
[2019-12-22] MEDS: LINEZOLID 600 MG/300 ML RTUPB IV SCH ×2 (10:11→23:06)
[2019-12-22] MEDS: AZITHROMYCIN 500 MG in DEXTROSE 5%-WATER 250 ML IV SCH (10:11)
[2019-12-22] MEDS ORDERED: ROCURONIUM BROMIDE INJ 50 MG/5 ML VIAL IV ONE (10:50)
[2019-12-22] MEDS: THIAMINE HCL 250 MG in NORMAL SALINE 250 ML IV SCH ×2 (11:21→23:14)
[2019-12-22] MEDS: HYDROMORPHONE HCL INJ/PF 2 MG/ML AMPULE IV PRN (17:00)
[2019-12-22] MEDS: HYDROMORPHONE HCL 30 MG/60 ML RTUINJ IV PRN (17:44)
--- NOTE | 2019-12-22 19:19 | PDOC CRITICAL CARE PROG REPORT ---
General Date:: 12/22/19 ICU Day:: 3 Ventilator Day:: 3 Hospital Day:: 7 Resuscitation Status: Full Code Events in the past 12 to 24 Hours:: 12.22.2019: Patient has responded well to prone therapy and supplemental therapies for his dual pneumonia with SARS, 2-CoViD19 and influenza suspected to be H1 and 1. He has been prone for approximately 20 hours and has successfully weaned from 100% down to 40% FiO2. We have maintained him at 45% so as to assure continued adequate oxygenation. 12.21.2019: Patient urgently intubated and placed in prone position secondary to severe hypoxia related to influenza A and SARS, 2-CoViD19 Prone he has dramatically improved his oxygenation and he has now been weaned to 70%. His PEEP is now down to 10. He has a type H phenotype and responded to recruitment. His compliance has been good. Review of systems relevant to events:: 12.22.2019: Lateral left lip. Despite optimal cushioning of contact areas this appears to be related to the ET tube presence. There is to be no other injury pattern. Inflammatory studies and markers still pending. Viral studies still pending to rule out H1 N1. He is tolerating tube feeds. His fever curve and profile has improved. 12.21.2019: Inflammatory markers are severely elevated are improving. Several febrile spikes with diaphoresis last evening and is now been hypothermic. Calcitonin is not elevated significantly Reason for ICU Addmission:: Severe hypoxia with SARS, 2-CoViD19 and influenza A Physical Exam Vital Signs: Temp Pulse Resp BP Pulse Ox 99.1 F 91 18 113/70 99 12/22/19 18:00 12/22/19 10:00 12/22/19 10:00 12/22/19 10:00 12/22/19 18:00 Intake & Output 12/21/19 12/22/19 12/23/19 06:59 06:59 06:59 Intake Total 4868.5 4169.5 2066.5 Output Total 3960 2810 1300 Balance 908.5 1359.5 766.5 Weight 88.6 kg 87.9 kg 87.9 kg Weight/Height Weight 87.9 kg Height 5 ft 8 in General appearance: PRESENT: no acute distress, morbidly obese Exam: Intubated nontoxic ill appearing older 39-year-old male no active distress. Examined in prone and supine position. Supervised and managed airway during the supine process. Full control of arms and legs by nursing and maintenance of ET tube and head by this author. Head exam: PRESENT: atraumatic, other - Minimal swelling on the forehead but no other pressure lesions. Eye exam: PRESENT: conjunctival injection, PERRLA. ABSENT: nystagmus, scleral icterus Mouth exam: PRESENT: moist, neck supple Teeth exam: PRESENT: poor dentation Neck exam: ABSENT: JVD, lymphadenopathy, thyromegaly, tracheal deviation Respiratory exam: PRESENT: unlabored, other - Lung sounds not auscultated secondary to the confines of PPE and poor auditory capability of disposable stethoscope. ABSENT: accessory muscle use, tachypnea Cardiovascular exam: PRESENT: other - Heart sounds not auscultated secondary to the confines of PPE and poor auditory capability of disposable stethoscope. ABSENT: bradycardia, irregular rhythm, tachycardia Pulses: PRESENT: +1 pedal pulses bilateral Vascular exam: PRESENT: normal capillary refill. ABSENT: pallor GI/Abdominal exam: PRESENT: soft, other - Gastric sounds not auscultated secondary to the confines of PPE and poor auditory capability of disposable stethoscope. ABSENT: ascites, firm, Chan's sign, rigid, tenderness Rectal exam: PRESENT: deferred Gentrourinary exam: PRESENT: indwelling catheter Extremities exam: ABSENT: pedal edema Musculoskeletal exam: ABSENT: deformity, dislocation Neurological exam: PRESENT: altered - Extremely sedated to prevent inadvertent extubation while prone. RASTs -2 Psychiatric exam: PRESENT: appropriate affect Skin exam: PRESENT: dry, intact, warm, other - Slight swelling to left lower lip. No decubiti no pressure ulceration on contact points. ABSENT: cyanosis, rash Tubes/Lines: PRESENT: Endotracheal Tube, Central Line, Arterial Catheter, Other - Orogastric tube, Rojo type urinary catheter Laboratory/Radiographs Laboratory Results: 12/22/19 04:30 12/22/19 04:30 12/22/19 12/22/19 12/22/19 04:30 04:30 04:30 WBC 8.4 RBC 4.03 L Hgb 12.5 L Hct 35.8 L MCV 89 MCH 31.1 MCHC 35.0 RDW 12.5 Plt Count 329 Sodium 140.4 Potassium 4.0 Chloride 111 H Carbon Dioxide 24 Anion Gap 5 BUN 14 Creatinine 0.53 Est GFR ( Amer) > 60 Glucose 294 H Calcium 8.3 L Magnesium 2.7 H Urine Color YELLOW Urine Appearance CLEAR Urine pH 6.0 Ur Specific [place] 1.038 Urine Protein 100 H Urine Glucose (UA) >=500 H Urine Ketones 80 H Urine Blood NEGATIVE Urine Nitrite NEGATIVE Ur Leukocyte Esterase NEGATIVE Urine WBC (Auto) 1 Urine RBC (Auto) 2 12/20/19 11:13 Bronchial Washings Gram Stain - Final 12/20/19 11:13 Bronchial Washings Bronchial Washings Culture - Final NORMAL MAGDALENE 12/21/19 03:10 Creatine Kinase 593 H Impressions: Chest X-Ray 12/20/19 10:21 IMPRESSION: Interval placement of endotracheal tube, NG tube and central line as described. No pneumothorax. Support lines and tubes are in satisfactory position. Persistent diffuse bilateral pneumonia. All labs, radiographs, diagnostic studies and EKGs were personally reviewed: Yes In addition, reports of radiographic and diagnostic studies were read: Yes Assessment and Plan - Diagnosis (1) Acute respiratory failure with hypoxia Is this a current diagnosis for this admission?: Yes (2) COVID-19 virus detected Is this a current diagnosis for this admission?: Yes (3) Bilateral pneumonia Qualifiers: Pneumonia type: due to unspecified organism Lung location: unspecified part of lung Qualified Code(s): J18.9 - Pneumonia, unspecified organism Is this a current diagnosis for this admission?: Yes (4) Diabetes mellitus type 2 in obese Is this a current diagnosis for this admission?: Yes (5) Influenza A Is this a current diagnosis for this admission?: Yes (6) Multifocal pneumonia Is this a current diagnosis for this admission?: Yes Plan Summary: 12.22.2019: Overall significant improvement in his oxygenation status. He has recruitable lung and we have reduced his FiO2 as well as his PEEP. We will maintain him at 45 to 50% FiO2 as well as 10 of PEEP to maintain lung volumes and prevent atelectasis. We will continue to follow inflammatory markers. D-dimer is of importance and will continue full treatment Lovenox as long as the d-dimer is above 1. He has had no bleeding as a result of this. QT C is within normal limits. Continue nutritional support Continue to maintain significant sedation to prevent inadvertent ET tube removal Consider lengthening weaning process given the history of SARS, 2-CoViD19 high prevalence of recrudescence of hypoxia Reevaluation of the patient's lip shows improvement in swelling. There appears to be no other injuries related to his chronic process. Will attempt to wean sedation momentarily check neurological status 4.: Patient appears to be improving well from his initial hypoxic event. Continue in prone position until we can reduce his FiO2 to 50%. Typically, proning is done for up to 18 hours. Given his and dramatic improvement I am reticent to supinate him too soon. We will attempt to get his FiO2 to 50% PEEP at 10 and attempt supine positioning in the morning. Even his elevated d-dimer is which is seen with SARS, 2-CoViD19 we have placed him on full supportive treatment of Lovenox. He is on Plaquenil and all the supplementary medications to support oxygenation-coupling disruption of the hemoglobin molecule--hopefully vitamin C will add to this improvement. He is started on enteral nutrition appears to be tolerating it well. Full observation of contact points to prevent pressure sores will need to be maintained. Critical Time Critical Time (minutes): 65 Level of Care: ICU -: 1. The care of a critical patient is a dynamic process. This note is a surgical device sales representative synopsis but static in nature. The timeframe for treatments given in order is not necessarily the actual time these treatments may have been done. 2. This patient requires critical care secondary to ongoing requirements for therapy not offered or safe outside the critical care environment. Transfer to a lower level of care will result in altered life or limb morbidity and mortality. 3. Multidisciplinary rounds completed. 4. ABCDE bundle addressed.
[2019-12-22] MEDS ORDERED: THIAMINE HCL INJ 200 MG/2 ML VIAL IV SCH (22:00)
[2019-12-22] MEDS ORDERED: THIAMINE HCL INJ 200 MG/2 ML VIAL ONE (23:06)
[2019-12-23] MEDS: NORMAL SALINE 1000 ML 1,000 ML IV PRN ×2 (00:14→10:10)
[2019-12-23] MEDS ORDERED: ASCORBIC ACID 500 MG TABLET ONE (01:57)
[2019-12-23] MEDS: ASCORBIC ACID 500 MG TABLET NG SCH ×3 (02:18→17:04)
[2019-12-23 05:09] LABS: ABSOLUTE LYMPHOCYTES (AUTO) 0.5 10^3/uL (0.5-4.7); ABSOLUTE MONOCYTES (AUTO) 0.5 10^3/uL (0.1-1.4); ABSOLUTE NEUT (AUTO) 6.8 10^3/uL (1.7-8.2); BASOPHILS % (AUTO) 0.1 % (0-2); HEMATOCRIT 35.8 % (37.9-51.0); HEMOGLOBIN 12.6 g/dL (13.5-17.0); LYMPHOCYTES % (AUTO) 6.9 % (13-45); MEAN CORPUSCULAR HEMOGLOBIN 31.2 pg (27.0-33.4); MEAN CORPUSCULAR HGB CONC 35.2 g/dL (32.0-36.0); MEAN CORPUSCULAR VOLUME 89 fl (80-97); MONOCYTES % (AUTO) 6.4 % (3-13); PLATELET COUNT 314 10^3/uL (150-450); RED BLOOD COUNT 4.04 10^6/uL (4.35-5.55); RED CELL DISTRIBUTION WIDTH 12.6 % (11.5-14.0); SEGMENTED NEUTROPHILS % (AUTO) 86.6 % (42-78); TOTAL CELLS COUNTED % (AUTO) 100 %; WHITE BLOOD COUNT 7.9 10^3/uL (4.0-10.5)
[2019-12-23 05:10] LABS: ARTERIAL BLOOD BASE EXCESS 0 mmol/L; ARTERIAL BLOOD FIO2 40%; ARTERIAL BLOOD H2CO3 1.09 mmol/L (1.05-1.35); ARTERIAL BLOOD HCO3 23.8 mmol/L (20-24); ARTERIAL BLOOD PCO2 36.1 mmHg (35-45); ARTERIAL BLOOD PH 7.44 (7.35-7.45); ARTERIAL BLOOD PO2 104.2 mmHg (80-100); ARTERIAL BLOOD TOTAL CO2 24.9 mmol/L (23-27)
[2019-12-23 05:30] LABS: ALBUMIN 2.6 g/dL (3.5-5.0); ALKALINE PHOSPHATASE 80 U/L (38-126); ASPARTATE AMINO TRANSFERASE 33 U/L (17-59); BILIRUBIN,DIRECT 0.2 mg/dL (0.0-0.4); BILIRUBIN,TOTAL 0.7 mg/dL (0.2-1.3); BLOOD UREA NITROGEN 15 mg/dL (7-20); C-REACTIVE PROTEIN 80.7 mg/L (<10.0); CALCIUM 7.8 mg/dL (8.4-10.2); GLUCOSE 299 mg/dL (75-110); PHOSPHORUS 2.6 mg/dL (2.5-4.5); TOTAL PROTEIN 5.4 g/dL (6.3-8.2)
[2019-12-23 05:33] LABS: CARBON DIOXIDE 28 mmol/L (22-30); CHLORIDE 110 mmol/L (98-107)
[2019-12-23 05:38] LABS: ANION GAP 2 (5-19)
[2019-12-23] MEDS: MINERAL OIL/PETROLATUM,WHITE OPH OINT 3.5 GM OU SCH ×3 (05:53→21:00)
[2019-12-23] MEDS: MEROPENEM 1 GM in NORMAL SALINE 50 ML IV SCH ×3 (05:54→21:01)
[2019-12-23] MEDS: MIDAZOLAM HCL 50 MG/100 ML RTUINJ IV PRN ×4 (05:54→20:29)
[2019-12-23] MEDS: HYDROMORPHONE HCL 30 MG/60 ML RTUINJ IV PRN ×2 (07:28→21:11)
[2019-12-23] MEDS: METHYLPREDNISOLONE INJ 125 MG/2 ML SDV IV SCH ×2 (10:05→21:02)
[2019-12-23] MEDS: FAMOTIDINE 20 MG TABLET NG SCH ×2 (10:06→21:00)
[2019-12-23] MEDS: CHOLECALCIFEROL (D3) 1,000 UNIT (25 MCG) TABLET NG SCH (10:06)
[2019-12-23] MEDS: ENOXAPARIN SODIUM INJ 100 MG/1 ML DISP.SYRIN SUBCUT SCH ×2 (10:06→21:00)
[2019-12-23] MEDS: HYDROXYCHLOROQUINE SULFATE 200 MG TABLET NG SCH ×2 (10:07→17:04)
[2019-12-23] MEDS: OSELTAMIVIR PHOSPHATE 75 MG CAPSULE NG SCH ×2 (10:07→21:01)
[2019-12-23] MEDS: ZINC SULFATE 220 MG CAPSULE NG SCH (10:07)
[2019-12-23] MEDS: LINEZOLID 600 MG/300 ML RTUPB IV SCH ×2 (10:08→21:05)
[2019-12-23] MEDS: INSULIN REG, HUMAN 100 UNIT/ML 3 ML VIAL (PYX) SUBCUT PRN ×3 (10:08→22:09)
[2019-12-23] MEDS: THIAMINE HCL 250 MG in NORMAL SALINE 250 ML IV SCH (10:08)
[2019-12-23] MEDS: AZITHROMYCIN 500 MG in DEXTROSE 5%-WATER 250 ML IV SCH (10:08)
--- NOTE | 2019-12-23 17:30 | PDOC CRITICAL CARE PROG REPORT ---
General Date:: 12/23/19 ICU Day:: 4 Ventilator Day:: 4 Hospital Day:: 8 Resuscitation Status: Full Code Events in the past 12 to 24 Hours:: 12.23.2019: Patient was re-supinated yesterday and has maintain oxygen saturation with the reduction in FiO2. Overall his inflammatory parameters have dramatically improved with a reduction in his ferritin of greater than 50% followed by reduction in CRP and d-dimer. Peers to be responding to treatment. 12.22.2019: Patient has responded well to prone therapy and supplemental therapies for his dual pneumonia with SARS, 2-CoViD19 and influenza suspected to be H1 and 1. He has been prone for approximately 20 hours and has successfully weaned from 100% down to 40% FiO2. We have maintained him at 45% so as to assure continued adequate oxygenation. 12.21.2019: Patient urgently intubated and placed in prone position secondary to severe hypoxia related to influenza A and SARS, 2-CoViD19 Prone he has dramatically improved his oxygenation and he has now been weaned to 70%. His PEEP is now down to 10. He has a type H phenotype and responded to recruitment. His compliance has been good. Review of systems relevant to events:: 12.23.2019: As noted above inflammatory parameters are improved. Revealed a leukocyte ratio has improved. He is still being ventilated with an FiO2 of 45%. Chest x-rays have been done secondary to SARS, 2-CoViD19 restrictions 12.22.2019: Lateral left lip. Despite optimal cushioning of contact areas this appears to be related to the ET tube presence. There is to be no other injury pattern. Inflammatory studies and markers still pending. Viral studies still pending to rule out H1 N1. He is tolerating tube feeds. His fever curve and profile has improved. 12.21.2019: Inflammatory markers are severely elevated are improving. Several febrile spikes with diaphoresis last evening and is now been hypothermic. C alcitonin is not elevated significantly Reason for ICU Addmission:: Severe hypoxia with SARS, 2-CoViD19 and influenza A - Medications: Medications reviewed and adjusted accordingly: Yes Physical Exam Vital Signs: Temp Pulse Resp BP Pulse Ox 99.5 F 93 16 113/70 99 12/23/19 06:00 12/22/19 20:00 12/22/19 19:00 12/22/19 10:00 12/23/19 06:00 Intake & Output 12/22/19 12/23/19 12/24/19 06:59 06:59 06:59 Intake Total 4169.5 3696.5 Output Total 2810 2900 Balance 1359.5 796.5 Weight 87.9 kg 91.6 kg Weight/Height Weight 91.6 kg Height 5 ft 8 in General appearance: PRESENT: no acute distress, obese Exam: Intubated, supine 39-year-old male who appears older than stated age. No acute distress wants to stimulus Head exam: PRESENT: atraumatic, normocephalic Eye exam: PRESENT: conjunctival injection, conjunctiva pink, PERRLA. ABSENT: nystagmus, scleral icterus Neck exam: PRESENT: carotid bruit, tracheal deviation. ABSENT: JVD, lymphadenopathy, thyromegaly Respiratory exam: PRESENT: unlabored, other - Lung sounds not auscultated secondary to the confines of PPE and poor auditory capability of disposable stethoscope. ABSENT: accessory muscle use, tachypnea Cardiovascular exam: PRESENT: RRR, +S1, +S2, other - Heart sounds not auscultated secondary to the confines of PPE and poor auditory capability of disposable stethoscope. ABSENT: irregular rhythm, tachycardia Pulses: PRESENT: +1 pedal pulses bilateral Vascular exam: PRESENT: normal capillary refill, pallor GI/Abdominal exam: PRESENT: ascites, soft, other - Gastric sounds not ausc ultated secondary to the confines of PPE and poor auditory capability of disposable stethoscope. ABSENT: organolmegaly, rigid, tenderness Rectal exam: PRESENT: deferred Gentrourinary exam: PRESENT: indwelling catheter Extremities exam: ABSENT: pedal edema Musculoskeletal exam: ABSENT: deformity, dislocation Neurological exam: PRESENT: altered - Iatrogenically deeply sedated to prevent inadvertent ET tube movable. ABSENT: motor sensory deficit Psychiatric exam: PRESENT: appropriate affect Skin exam: PRESENT: dry, intact, normal color, warm. ABSENT: cyanosis, mottled, pallor, petechiae, rash Tubes/Lines: PRESENT: Endotracheal Tube, Central Line, Arterial Catheter - Rojo type urinary catheter, gastric tube Laboratory/Radiographs Laboratory Results: 12/23/19 04:30 12/23/19 04:30 12/23/19 12/23/19 12/23/19 04:30 04:30 04:30 WBC 7.9 RBC 4.04 L Hgb 12.6 L Hct 35.8 L MCV 89 MCH 31.2 MCHC 35.2 RDW 12.6 Plt Count 314 Seg Neutrophils % 86.6 H Carbonic Acid 1.09 HCO3/H2CO3 Ratio 21:1 ABG pH 7.44 ABG pCO2 36.1 ABG pO2 104.2 H ABG HCO3 23.8 ABG O2 Saturation 98.0 ABG Base Excess 0 FiO2 40% Sodium 140.0 Potassium 4.0 Chloride 110 H Carbon Dioxide 28 Anion Gap 2 L BUN 15 Creatinine 0.49 L Est GFR ( Amer) > 60 Glucose 299 H Calcium 7.8 L Phosphorus 2.6 Magnesium 2.7 H Ferritin 3510.00 H Total Bilirubin 0.7 AST 33 Alkaline Phosphatase 80 C-Reactive Protein 80.7 H Total Protein 5.4 L Albumin 2.6 L 12/18/19 22:15 Blood Blood Culture (PCR) - Final 12/20/19 11:13 Bronchial Washings Gram Stain - Final 12/20/19 11:13 Bronchial Washings Bronchial Washings Culture - Final NORMAL MAGDALENE 12/21/19 03:10 Creatine Kinase 593 H Impressions: Chest X-Ray 12/20/19 10:21 IMPRESSION: Interval placement of endotracheal tube, NG tube and central line as described. No pneumothorax. Support lines and tubes are in satisfactory position. Persistent diffuse bilateral pneumonia. All labs, radiographs, diagnostic studies and EKGs were personally reviewed: Yes In addition, reports of radiographic and diagnostic studies were read: Yes Assessment and Plan - Diagnosis (1) Acute respiratory failure with hypoxia Is this a current diagnosis for this admission?: Yes (2) COVID-19 virus detected Is this a current diagnosis for this admission?: Yes (3) Bilateral pneumonia Qualifiers: Pneumonia type: due to unspecified organism Lung location: unspecified part of lung Qualified Code(s): J18.9 - Pneumonia, unspecified organism Is this a current diagnosis for this admission?: Yes (4) Diabetes mellitus type 2 in obese Is this a current diagnosis for this admission?: Yes (5) Influenza A Is this a current diagnosis for this admission?: Yes (6) Multifocal pneumonia Is this a current diagnosis for this admission?: Yes Plan Summary: 12.23.2019: Patient is improving in the expected trajectory. I am impressed with his dramatic recovery despite H1 N1 viral pneumonitis in addition to SARS, 2- CoViD19 pneumonitis He is noted to have gram-positive's in his bloodstream and he is on gram- positive coverage pending speciation Given his improvement we will begin the process of slow and gentle weaning from the ventilator. Drawing on data from [place] and our [place] colleagues confirmed by physicians and clinicians in the [facility] [place], we will need to be vigilant to not liberate too quickly. Continue supportive care. We will attempt to move to a negative airflow room in anticipation for vent liberation in the next 24 hours Continue to monitor inflammatory parameters start We will start dexmedetomidine Watch for DVTs and continue anticoagulation. 12.22.2019: Overall significant improvement in his oxygenation status. He has recruitable lung and we have reduced his FiO2 as well as his PEEP. We will maintain him at 45 to 50% FiO2 as well as 10 of PEEP to maintain lung volumes and prevent atelectasis. We will continue to follow inflammatory markers. D-dimer is of importance and will continue full treatment Lovenox as long as the d-dimer is above 1. He has had no bleeding as a result of this. QT C is within normal limits. Continue nutritional support Continue to maintain significant sedation to prevent inadvertent ET tube removal Consider lengthening weaning process given the history of SARS, 2-CoViD19 high prevalence of recrudescence of hypoxia Reevaluation of the patient's lip shows improvement in swelling. There appears to be no other injuries related to his chronic process. Will attempt to wean sedation momentarily check neurological status 12.21.2019: Patient appears to be improving well from his initial hypoxic event. Continue in prone position until we can reduce his FiO2 to 50%. Typically, proning is done for up to 18 hours. Given his and dramatic improvement I am reticent to supinate him too soon. We will attempt to get his FiO2 to 50% PEEP at 10 and attempt supine positioning in the morning. Even his elevated d-dimer is which is seen with SARS, 2-CoViD19 we have placed him on full supportive treatment of Lovenox. He is on Plaquenil and all the supplementary medications to support oxygenation- coupling disruption of the hemoglobin molecule--hopefully vitamin C will add to this improvement. He is started on enteral nutrition appears to be tolerating it well. Full observation of contact points to prevent pressure sores will need to be maintained. Critical Time Critical Time (minutes): 40 Level of Care: ICU -: 1. The care of a critical patient is a dynamic process. This note is a access services representative synopsis but static in nature. The timeframe for treatments given in order is not necessarily the actual time these treatments may have been done. 2. This patient requires critical care secondary to ongoing requirements for therapy not offered or safe outside the critical care environment. Transfer to a lower level of care will result in altered life or limb morbidity and mortality. 3. Multidisciplinary rounds completed. 4. ABCDE bundle addressed.
[2019-12-23] MEDS: HYDROMORPHONE HCL INJ/PF 2 MG/ML AMPULE IV PRN (20:10)
[2019-12-23] MEDS ORDERED: THIAMINE HCL INJ 200 MG/2 ML VIAL IV SCH (22:00)
[2019-12-23] MEDS: THIAMINE HCL 250 MG in NORMAL SALINE 100 ML IV SCH (22:09)
[2019-12-24] MEDS: DEXMEDETOMIDINE IN 0.9 % NACL 400 MCG/100 ML RTUPB IV PRN ×8 (00:03→23:03)
[2019-12-24] MEDS: MIDAZOLAM HCL 50 MG/100 ML RTUINJ IV PRN ×2 (00:55→19:03)
[2019-12-24] MEDS: ASCORBIC ACID 500 MG TABLET NG SCH ×3 (01:27→17:19)
[2019-12-24] MEDS ORDERED: GLUCAGON,HUMAN RECOMB 1 MG INJ IM PRN (01:29)
[2019-12-24] MEDS ORDERED: DEXTROSE 40% GEL 15 GM TUBE PO PRN ×2 (01:29)
[2019-12-24] MEDS ORDERED: DEXTROSE 50%-WATER 25 GM/50 ML DISP.SYRIN IV PRN ×2 (01:29)
[2019-12-24] MEDS: HYDROMORPHONE HCL INJ/PF 2 MG/ML AMPULE IV PRN ×2 (02:21→23:01)
[2019-12-24 03:33] LABS: ARTERIAL BLOOD BASE EXCESS 2.3 mmol/L; ARTERIAL BLOOD H2CO3 1.24 mmol/L (1.05-1.35); ARTERIAL BLOOD HCO3 26.8 mmol/L (20-24); ARTERIAL BLOOD O2 SATURATION 95.8 % (94-98); ARTERIAL BLOOD PCO2 41.3 mmHg (35-45); ARTERIAL BLOOD PH 7.43 (7.35-7.45); ARTERIAL BLOOD PO2 77.4 mmHg (80-100); ARTERIAL BLOOD TOTAL CO2 28.1 mmol/L (23-27)
[2019-12-24 03:39] LABS: ABSOLUTE LYMPHOCYTES (AUTO) 0.5 10^3/uL (0.5-4.7); ABSOLUTE MONOCYTES (AUTO) 0.4 10^3/uL (0.1-1.4); ABSOLUTE NEUT (AUTO) 5.7 10^3/uL (1.7-8.2); BASOPHILS % (AUTO) 0.1 % (0-2); HEMATOCRIT 38.3 % (37.9-51.0); HEMOGLOBIN 13.4 g/dL (13.5-17.0); LYMPHOCYTES % (AUTO) 8.2 % (13-45); MEAN CORPUSCULAR HEMOGLOBIN 31.3 pg (27.0-33.4); MEAN CORPUSCULAR HGB CONC 35.1 g/dL (32.0-36.0); MEAN CORPUSCULAR VOLUME 89 fl (80-97); MONOCYTES % (AUTO) 6.6 % (3-13); PLATELET COUNT 342 10^3/uL (150-450); RED CELL DISTRIBUTION WIDTH 12.4 % (11.5-14.0); SEGMENTED NEUTROPHILS % (AUTO) 85.1 % (42-78); TOTAL CELLS COUNTED % (AUTO) 100 %; WHITE BLOOD COUNT 6.7 10^3/uL (4.0-10.5)
[2019-12-24 03:40] LABS: ARTERIAL BLOOD FIO2 35%
[2019-12-24 03:53] LABS: BLOOD UREA NITROGEN 18 mg/dL (7-20); C-REACTIVE PROTEIN 49.6 mg/L (<10.0); CALCIUM 7.8 mg/dL (8.4-10.2); GLUCOSE 328 mg/dL (75-110); PHOSPHORUS 3.4 mg/dL (2.5-4.5); POTASSIUM 4.4 mmol/L (3.6-5.0)
[2019-12-24 03:57] LABS: CARBON DIOXIDE 29 mmol/L (22-30); CHLORIDE 107 mmol/L (98-107)
[2019-12-24 05:12] LABS: ANION GAP 3 (5-19)
[2019-12-24] MEDS: MINERAL OIL/PETROLATUM,WHITE OPH OINT 3.5 GM OU SCH ×3 (05:25→21:08)
[2019-12-24] MEDS: MEROPENEM 1 GM in NORMAL SALINE 50 ML IV SCH ×3 (05:25→21:09)
[2019-12-24] MEDS: INSULIN REG, HUMAN 100 UNIT/ML 3 ML VIAL (PYX) SUBCUT SCH ×4 (06:31→23:38)
[2019-12-24] MEDS: ENOXAPARIN SODIUM INJ 100 MG/1 ML DISP.SYRIN SUBCUT SCH (09:02)
[2019-12-24] MEDS: ZINC SULFATE 220 MG CAPSULE NG SCH (09:03)
[2019-12-24] MEDS: FAMOTIDINE 20 MG TABLET NG SCH ×2 (09:03→21:09)
[2019-12-24] MEDS: CHOLECALCIFEROL (D3) 1,000 UNIT (25 MCG) TABLET NG SCH (09:03)
[2019-12-24] MEDS: METHYLPREDNISOLONE INJ 125 MG/2 ML SDV IV SCH ×2 (09:03→21:09)
[2019-12-24] MEDS: OSELTAMIVIR PHOSPHATE 75 MG CAPSULE NG SCH (09:06)
[2019-12-24] MEDS: HYDROXYCHLOROQUINE SULFATE 200 MG TABLET NG SCH ×2 (09:07→17:19)
[2019-12-24] MEDS: THIAMINE HCL 250 MG in NORMAL SALINE 100 ML IV SCH (09:09)
[2019-12-24] MEDS ORDERED: HYDRALAZINE HCL INJ/PF 20 MG/1 ML SDV IV PRN (09:13)
[2019-12-24] MEDS ORDERED: HYDRALAZINE HCL INJ/PF 20 MG/1 ML SDV ONE (09:15)
[2019-12-24 10:24] LABS: HIV-1 RNA PCR QUANT <20 copies/mL (.)
[2019-12-24] MEDS: LINEZOLID 600 MG/300 ML RTUPB IV SCH (11:24)
[2019-12-24] MEDS: AZITHROMYCIN 500 MG in DEXTROSE 5%-WATER 250 ML IV SCH (11:24)
[2019-12-24] MEDS: HYDROMORPHONE HCL 30 MG/60 ML RTUINJ IV PRN (11:50)
[2019-12-24 17:40] LABS: ANION GAP 5 (5-19); BLOOD UREA NITROGEN 17 mg/dL (7-20); CALCIUM 7.8 mg/dL (8.4-10.2); CARBON DIOXIDE 30 mmol/L (22-30); CHLORIDE 102 mmol/L (98-107); GLUCOSE 314 mg/dL (75-110); PHOSPHORUS 3.8 mg/dL (2.5-4.5)
--- NOTE | 2019-12-24 20:56 | PDOC CRITICAL CARE PROG REPORT ---
General Date:: 12/24/19 ICU Day:: 5 Ventilator Day:: 5 Hospital Day:: 9 Resuscitation Status: Full Code Events in the past 12 to 24 Hours:: 12.24.2019: Patient's respiratory status continues to improve and he has had no hypoxia with reduction in FiO2. Still has significant secretions. Inflammatory markers are dramatically improved but his ferritin although improved is still high. D-Dimer is less than 1 and full dose Lovenox has been stopped 12.23.2019: Patient was re-supinated yesterday and has maintain oxygen saturation with the reduction in FiO2. Overall his inflammatory parameters have dramatically improved with a reduction in his ferritin of greater than 50% followed by reduction in CRP and d-dimer. Peers to be responding to treatment. 12.22.2019: Patient has responded well to prone therapy and supplemental therapies for his dual pneumonia with SARS, 2-CoViD19 and influenza suspected to be H1 and 1. He has been prone for approximately 20 hours and has successfully weaned from 100% down to 40% FiO2. We have maintained him at 45% so as to assure continued adequate oxygenation. 12.21.2019: Patient urgently intubated and placed in prone position secondary to severe hypoxia related to influenza A and SARS, 2-CoViD19 Prone he has dramatically improved his oxygenation and he has now been weaned to 70%. His PEEP is now down to 10. He has a type H phenotype and responded to recruitment. His compliance has been good. Review of systems relevant to events:: 12.24.2019: Patient has been on pressure support wean however secretions limited his ability to be liberated from ventilator today. Been no bleeding on Lovenox. Is tolerating tube feeds. Fever curve is noted and are improved. 12.23.2019: As noted above inflammatory parameters are improved. Revealed a leukocyte ratio has improved. He is still being ventilated with an FiO2 of 45%. Chest x-rays have been done secondary to SARS, 2-CoViD19 restrictions 12.22.2019: Lateral left lip. Despite optimal cushioning of contact areas this appears to be related to the ET tube presence. There is to be no other injury pattern. Inflammatory studies and markers still pending. Viral studies still pending to rule out H1 N1. He is tolerating tube feeds. His fever curve and profile has improved. 12.21.2019: Inflammatory markers are severely elevated are improving. Several febrile spikes with diaphoresis last evening and is now been hypothermic. Calcitonin is not elevated significantly Reason for ICU Addmission:: Severe hypoxia with SARS, 2-CoViD19 and influenza A - Medications: Medications reviewed and adjusted accordingly: Yes Vasopressors:: None Sedation:: Precedex , versed, dilaudid Physical Exam Vital Signs: Temp Pulse Resp BP Pulse Ox 99.9 F 76 18 113/70 97 12/24/19 18:00 12/23/19 20:00 12/23/19 19:00 12/22/19 10:00 12/24/19 18:00 Intake & Output 12/23/19 12/24/19 12/25/19 06:59 06:59 06:59 Intake Total 4299.0 3327.5 1201 Output Total 2900 2940 2625 Balance 1399.0 387.5 -1424 Weight 91.6 kg 95.1 kg Weight/Height Weight 95.1 kg Height 5 ft 8 in General appearance: PRESENT: no acute distress, morbidly obese Exam: Intubated obese nontoxic older appearing 39-year-old male no active distress Head exam: PRESENT: other - Slight facial and lip swelling from prone positioning improving Eye exam: PRESENT: conjunctiva pink, PERRLA. ABSENT: conjunctival injection, nystagmus, scleral icterus Mouth exam: PRESENT: moist Neck exam: ABSENT: JVD, lymphadenopathy, thyromegaly, tracheal deviation Respiratory exam: PRESENT: unlabored, other - Lung sounds not auscultated secondary to the confines of PPE and poor auditory capability of disposable stethoscope. ABSENT: accessory muscle use, tachypnea Cardiovascular exam: PRESENT: RRR, other - Heart sounds not auscultated secondary to the confines of PPE and poor auditory capability of disposable stethoscope. ABSENT: bradycardia, irregular rhythm, tachycardia Pulses: PRESENT: +1 pedal pulses bilateral Vascular exam: PRESENT: normal capillary refill. ABSENT: pallor GI/Abdominal exam: PRESENT: soft, other - Gastric sounds not auscultated secondary to the confines of PPE and poor auditory capability of disposable stethoscope. ABSENT: ascites, firm, guarding, mass, organolmegaly, rebound, rigid, tenderness Rectal exam: PRESENT: deferred Gentrourinary exam: PRESENT: indwelling catheter Extremities exam: PRESENT: pedal edema Musculoskeletal exam: ABSENT: deformity, dislocation Neurological exam: PRESENT: altered - Heavily sedated secondary to respiratory status and SARS, 2-CoViD19, he was all extremities with noxious stimulus Psychiatric exam: ABSENT: agitated Skin exam: PRESENT: dry, intact, warm. ABSENT: cyanosis, rash Tubes/Lines: PRESENT: Endotracheal Tube, Central Line, Arterial Catheter, Other - Orogastric tube, Rojo type urinary catheter Laboratory/Radiographs Laboratory Results: 12/24/19 03:07 12/24/19 17:00 12/24/19 12/24/19 12/24/19 03:07 03:07 03:07 WBC 6.7 RBC 4.30 L Hgb 13.4 L Hct 38.3 MCV 89 MCH 31.3 MCHC 35.1 RDW 12.4 Plt Count 342 Seg Neutrophils % 85.1 H Carbonic Acid 1.24 HCO3/H2CO3 Ratio 21:1 ABG pH 7.43 ABG pCO2 41.3 ABG pO2 77.4 L ABG HCO3 26.8 H ABG O2 Saturation 95.8 ABG Base Excess 2.3 FiO2 35% Sodium 138.9 Potassium 4.4 Chloride 107 Carbon Dioxide 29 Anion Gap 3 L BUN 18 Creatinine 0.54 Est GFR ( Amer) > 60 Glucose 328 H Calcium 7.8 L Phosphorus 3.4 Magnesium 2.9 H Ferritin 2210.00 H C-Reactive Protein 49.6 H 12/24/19 17:00 WBC RBC Hgb Hct MCV MCH MCHC RDW Plt Count Seg Neutrophils % Carbonic Acid HCO3/H2CO3 Ratio ABG pH ABG pCO2 ABG pO2 ABG HCO3 ABG O2 Saturation ABG Base Excess FiO2 Sodium 136.5 L Potassium 4.0 Chloride 102 Carbon Dioxide 30 Anion Gap 5 BUN 17 Creatinine 0.52 Est GFR ( Amer) > 60 Glucose 314 H Calcium 7.8 L Phosphorus 3.8 Magnesium 2.5 H Ferritin C-Reactive Protein 12/18/19 22:15 Blood Blood Culture (PCR) - Final 12/19/19 00:06 Blood Blood Culture - Final NO GROWTH IN 5 DAYS 12/21/19 03:10 Creatine Kinase 593 H Impressions: Chest X-Ray 12/20/19 10:21 IMPRESSION: Interval placement of endotracheal tube, NG tube and central line as described. No pneumothorax. Support lines and tubes are in satisfactory position. Persistent diffuse bilateral pneumonia. All labs, radiographs, diagnostic studies and EKGs were personally reviewed: Yes In addition, reports of radiographic and diagnostic studies were read: Yes Assessment and Plan - Diagnosis (1) Acute respiratory failure with hypoxia Is this a current diagnosis for this admission?: Yes (2) COVID-19 virus detected Is this a current diagnosis for this admission?: Yes (3) Bilateral pneumonia Qualifiers: Pneumonia type: due to unspecified organism Lung location: unspecified part of lung Qualified Code(s): J18.9 - Pneumonia, unspecified organism Is this a current diagnosis for this admission?: Yes (4) Diabetes mellitus type 2 in obese Is this a current diagnosis for this admission?: Yes (5) Influenza A Is this a current diagnosis for this admission?: Yes (6) Multifocal pneumonia Is this a current diagnosis for this admission?: Yes Plan Summary: 12.24.2019: We will continue to provide respiratory support until we can improve secretions. We will begin to diurese today today determine whether this would help his weaning parameters. His inflammatory markers continue to improve and Plaquenil was completed yesterday. Discontinued Lovenox therapy but we will will be on Lovenox prophylaxis for DVT. Obviously sedation and agitation will be a competing issue and will need to monitor him judiciously. And will be to extubate him in a respiratory tent with backup plan for intubation should that occur. He is not a candidate for BiPAP but we may be able to place him on safety controlled CPAP high flow fails. Patient continues on Jeane nasal lid and has gram-positive cocci in clusters growing in his bloodstream. I am assuming this is coming from a secondary pneumonia from influenza and SARS, 2-CoViD19. It appears that his lungs are improving and we use linezolid for better lung penetration. Linezolid is not the best drug for bacteremia and so will switch to vancomycin; Will repeat blood cultures in AM. If positive will need a SOCO Patient has had significant hypertension and have needed to use hydralazine. This may be also as a result of Jeane nasal lid and we will discontinue this. In the meantime we will start on Norvasc and continue hydralazine as needed 12.23.2019: Patient is improving in the expected trajectory. I am impressed with his dramatic recovery despite H1 N1 viral pneumonitis in addition to SARS, 2- CoViD19 pneumonitis He is noted to have gram-positive's in his bloodstream and he is on gram- positive coverage pending speciation Given his improvement we will begin the process of slow and gentle weaning from the ventilator. Drawing on data from [place] and our [place] colleagues confirmed by physicians and clinicians in the [facility], we will need to be vigilant to not liberate too quickly. Continue supportive care. We will attempt to move to a negative airflow room in anticipation for vent liberation in the next 24 hours Continue to monitor inflammatory parameters start We will start dexmedetomidine Watch for DVTs and continue anticoagulation. 12.22.2019: Overall significant improvement in his oxygenation status. He has recruitable lung and we have reduced his FiO2 as well as his PEEP. We will maintain him at 45 to 50% FiO2 as well as 10 of PEEP to maintain lung volumes and prevent atelectasis. We will continue to follow inflammatory markers. D-dimer is of importance and will continue full treatment Lovenox as long as the d-dimer is above 1. He has had no bleeding as a result of this. QT C is within normal limits. Continue nutritional support Continue to maintain significant sedation to prevent inadvertent ET tube removal Consider lengthening weaning process given the history of SARS, 2-CoViD19 high prevalence of recrudescence of hypoxia Reevaluation of the patient's lip shows improvement in swelling. There appears to be no other injuries related to his chronic process. Will attempt to wean sedation momentarily check neurological status 12.21.2019: Patient appears to be improving well from his initial hypoxic event. Continue in prone position until we can reduce his FiO2 to 50%. Typically, proning is done for up to 18 hours. Given his and dramatic improvement I am reticent to supinate him too soon. We will attempt to get his FiO2 to 50% PEEP at 10 and attempt supine positioning in the morning. Even his elevated d-dimer is which is seen with SARS, 2-CoViD19 we have placed him on full supportive treatment of Lovenox. He is on Plaquenil and all the supplementary medications to support oxygenation- coupling disruption of the hemoglobin molecule--hopefully vitamin C will add to this improvement. He is started on enteral nutrition appears to be tolerating it well. Full observation of contact points to prevent pressure sores will need to be maintained. Critical Time Critical Time (minutes): 48 Level of Care: ICU -: 1. The care of a critical patient is a dynamic process. This note is a artist's representative synopsis but static in nature. The timeframe for treatments given in order is not necessarily the actual time these treatments may have been done. 2. This patient requires critical care secondary to ongoing requirements for therapy not offered or safe outside the critical care environment. Transfer to a lower level of care will result in altered life or limb morbidity and m ortality. 3. Multidisciplinary rounds completed. 4. ABCDE bundle addressed.
[2019-12-24] MEDS ORDERED: VANCOMYCIN HCL 0 MG in DEXTROSE 5%-WATER 250 ML IV NR (21:00)
[2019-12-24] MEDS ORDERED: FUROSEMIDE INJ/PF 20 MG/2 ML SDV ONE (21:12)
[2019-12-24 21:15] LABS: ARTERIAL BLOOD BASE EXCESS 6.5 mmol/L; ARTERIAL BLOOD FIO2 35%; ARTERIAL BLOOD H2CO3 1.32 mmol/L (1.05-1.35); ARTERIAL BLOOD HCO3 31.1 mmol/L (20-24); ARTERIAL BLOOD O2 SATURATION 96.9 % (94-98); ARTERIAL BLOOD PH 7.47 (7.35-7.45); ARTERIAL BLOOD PO2 85.9 mmHg (80-100); ARTERIAL BLOOD TOTAL CO2 32.4 mmol/L (23-27)
[2019-12-24] MEDS ORDERED: VANCOMYCIN HCL INJ 1000 MG VIAL IV PRN (21:52)
[2019-12-24] MEDS ORDERED: VANCOMYCIN HCL 2,000 MG in DEXTROSE 5%-WATER 500 ML IV ONE (22:00)
[2019-12-24] MEDS: FUROSEMIDE INJ/PF 20 MG/2 ML SDV IV SCH (22:00)
[2019-12-24] MEDS: AMLODIPINE BESYLATE 5 MG TABLET PO SCH (22:17)
[2019-12-24] MEDS ORDERED: INSULIN GLARGINE,HUM.REC.ANLOG 1,000 UNIT/10 ML VIAL SUBCUT ONE (23:15)
[2019-12-24] MEDS ORDERED: INSULIN GLARGINE,HUM.REC.ANLOG 1,000 UNIT/10 ML VIAL (PYX) SUBCUT ONE (23:28)
[2019-12-25] MEDS: DEXMEDETOMIDINE IN 0.9 % NACL 400 MCG/100 ML RTUPB IV PRN ×9 (02:21→23:53)
[2019-12-25] MEDS: ASCORBIC ACID 500 MG TABLET NG SCH ×3 (02:21→17:39)
[2019-12-25] MEDS: HYDROMORPHONE HCL 30 MG/60 ML RTUINJ IV PRN ×2 (02:46→21:35)
[2019-12-25 04:52] LABS: ARTERIAL BLOOD BASE EXCESS 5.1 mmol/L; ARTERIAL BLOOD H2CO3 1.31 mmol/L (1.05-1.35); ARTERIAL BLOOD HCO3 29.8 mmol/L (20-24); ARTERIAL BLOOD O2 SATURATION 96.4 % (94-98); ARTERIAL BLOOD PCO2 43.5 mmHg (35-45); ARTERIAL BLOOD PH 7.45 (7.35-7.45); ARTERIAL BLOOD TOTAL CO2 31.1 mmol/L (23-27); HEMATOCRIT 40.4 % (37.9-51.0); HEMOGLOBIN 14.6 g/dL (13.5-17.0); MEAN CORPUSCULAR HEMOGLOBIN 31.3 pg (27.0-33.4); MEAN CORPUSCULAR HGB CONC 36.1 g/dL (32.0-36.0); MEAN CORPUSCULAR VOLUME 87 fl (80-97); PLATELET COUNT 336 10^3/uL (150-450); RED BLOOD COUNT 4.65 10^6/uL (4.35-5.55); RED CELL DISTRIBUTION WIDTH 12.1 % (11.5-14.0); WHITE BLOOD COUNT 7.7 10^3/uL (4.0-10.5)
[2019-12-25 04:53] LABS: ARTERIAL BLOOD FIO2 35%
[2019-12-25 05:14] LABS: BLOOD UREA NITROGEN 18 mg/dL (7-20); C-REACTIVE PROTEIN 32.7 mg/L (<10.0); CALCIUM 7.8 mg/dL (8.4-10.2); CHLORIDE 99 mmol/L (98-107); GLUCOSE 317 mg/dL (75-110); PHOSPHORUS 3.8 mg/dL (2.5-4.5); POTASSIUM 4.3 mmol/L (3.6-5.0)
[2019-12-25 05:20] LABS: ABSOLUTE LYMPHOCYTES# (MANUAL) 1.1 10^3/uL (0.5-4.7); ABSOLUTE MONOCYTES # (MANUAL) 0.8 10^3/uL (0.1-1.4); BAND NEUTROPHILS % (MANUAL) 9 % (3-5); BASOPHILS % (MANUAL) 0 % (0-2); EOSINOPHILS % (MANUAL) 0 % (0-6); LYMPHOCYTES % (MANUAL) 14 % (13-45); MONOCYTES % (MANUAL) 10 % (3-13); SEGMENTED NEUTROPHILS % (MAN) 67 % (42-78); TOTAL CELLS COUNTED 100
[2019-12-25 05:21] LABS: PLATELET COMMENT ADEQUATE; RBC MORPHOLOGY COMMENT NORMO-CYTIC/CHROMIC
[2019-12-25] MEDS: MEROPENEM 1 GM in NORMAL SALINE 50 ML IV SCH ×3 (05:28→21:28)
[2019-12-25] MEDS: INSULIN REG, HUMAN 100 UNIT/ML 3 ML VIAL (PYX) SUBCUT SCH ×3 (05:28→17:46)
[2019-12-25] MEDS: MINERAL OIL/PETROLATUM,WHITE OPH OINT 3.5 GM OU SCH ×2 (05:29→13:41)
[2019-12-25] MEDS: FUROSEMIDE INJ/PF 20 MG/2 ML SDV IV SCH ×2 (05:29→13:40)
[2019-12-25] MEDS: MIDAZOLAM HCL 50 MG/100 ML RTUINJ IV PRN (05:37)
[2019-12-25 06:43] LABS: CARBON DIOXIDE 30 mmol/L (22-30)
[2019-12-25 06:49] LABS: ANION GAP 5 (5-19)
[2019-12-25] MEDS: ZINC SULFATE 220 MG CAPSULE NG SCH (09:31)
[2019-12-25] MEDS: FAMOTIDINE 20 MG TABLET NG SCH (09:31)
[2019-12-25] MEDS: CHOLECALCIFEROL (D3) 1,000 UNIT (25 MCG) TABLET NG SCH (09:31)
[2019-12-25] MEDS: AMLODIPINE BESYLATE 5 MG TABLET PO SCH ×3 (09:32→21:39)
[2019-12-25] MEDS: AZITHROMYCIN 500 MG in DEXTROSE 5%-WATER 250 ML IV SCH (09:33)
[2019-12-25] MEDS: METHYLPREDNISOLONE INJ 125 MG/2 ML SDV IV SCH (09:33)
[2019-12-25] MEDS: ENOXAPARIN SODIUM INJ 40 MG/0.4 ML DISP.SYRIN SUBCUT SCH (09:33)
[2019-12-25] MEDS ORDERED: VANCOMYCIN HCL 1,250 MG in DEXTROSE 5%-WATER 250 ML IV SCH (12:00)
[2019-12-25] MEDS: HYDROMORPHONE HCL INJ/PF 2 MG/ML AMPULE IV PRN (13:52)
[2019-12-25] MEDS ORDERED: MIDAZOLAM 2 MG/2 ML INJ IV ONE (16:10)
[2019-12-25] MEDS ORDERED: MIDAZOLAM 2 MG/2 ML INJ ONE (16:11)
[2019-12-25] MEDS ORDERED: MIDAZOLAM 2 MG/2 ML INJ IV PRN (17:19)
[2019-12-25] MEDS ORDERED: HALOPERIDOL LACTATE INJ 5 MG/1 ML VIAL IV PRN (17:20)
[2019-12-25] MEDS ORDERED: NORMAL SALINE 100 ML with INSULIN REGULAR, HUMAN 100 UNIT IV PRN ×2 (20:00)
[2019-12-25] MEDS ORDERED: DEXTROSE 50%-WATER 25 GM/50 ML DISP.SYRIN IV PRN ×2 (20:00)
[2019-12-25] MEDS ORDERED: GLUCAGON,HUMAN RECOMB 1 MG INJ IM PRN (20:00)
[2019-12-25] MEDS ORDERED: DEXTROSE 40% GEL 15 GM TUBE PO PRN ×2 (20:00)
[2019-12-25] MEDS ORDERED: INSULIN REG, HUMAN 100 UNIT/ML 3 ML VIAL (PYX) ONE (20:05)
--- NOTE | 2019-12-25 20:20 | PDOC CRITICAL CARE PROG REPORT ---
General Date:: 12/25/19 ICU Day:: 6 Ventilator Day:: 6 Hospital Day:: 10 Resuscitation Status: Full Code Events in the past 12 to 24 Hours:: 12.25.2019: Patient's respiratory status was sufficient enough to place patient o n SBT. He continued to do well but agitation was a problem and his sedation occult to adjust secondary to the concerns for oversedation. We are unable to determine whether he has a strong alcohol history but he has been very agitated despite high doses of sedative medications. A controlled setting with an extubation attempt to prevent aerosolization of particles patient was successfully liberated from the ventilator. He was placed on high flow prior to the extubation and has been maintained on this without difficulty. 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 There is no stridor and no hoarseness. 12.24.2019: Patient's respiratory status continues to improve and he has had no hypoxia with reduction in FiO2. Still has significant secretions. Inflammatory markers are dramatically improved but his ferritin although improved is still high. D-Dimer is less than 1 and full dose Lovenox has been stopped 12.23.2019: Patient was re-supinated yesterday and has maintain oxygen saturation with the reduction in FiO2. Overall his inflammatory parameters have dramatically improved with a reduction in his ferritin of greater than 50% followed by reduction in CRP and d-dimer. Peers to be responding to treatment. 12.22.2019: Patient has responded well to prone therapy and supplemental therapies for his dual pneumonia with SARS, 2-CoViD19 and influenza suspected to be H1 and 1. He has been prone for approximately 20 hours and has successfully weaned from 100% down to 40% FiO2. We have maintained him at 45% so as to assure continued adequate oxygenation. 12.21.2019: Patient urgently intubated and placed in prone position secondary to severe hypoxia related to influenza A and SARS, 2-CoViD19 Prone he has dramatically improved his oxygenation and he has now been weaned to 70%. His PEEP is now down to 10. He has a type H phenotype and responded to recruitment. His compliance has been good. Review of systems relevant to events:: 12.25.2019: Patient's hypertension has improved. Viral studies still pending to determine if influenza A is a H1 N1 variant. Glucose has been high with the high-dose steroids and these are being reduced and insulin drip started 12.24.2019: Patient has been on pressure support wean however secretions limited his ability to be liberated from ventilator today. There has been no bleeding on Lovenox. Is tolerating tube feeds. Fever curve is noted and are improved. 12.23.2019: As noted above inflammatory parameters are improved. Revealed a leukocyte ratio has improved. He is still being ventilated with an FiO2 of 45%. Chest x-rays have been done secondary to SARS, 2-CoViD19 restrictions 12.22.2019: Lateral left lip. Despite optimal cushioning of contact areas this appears to be related to the ET tube presence. There is to be no other injury pattern. Inflammatory studies and markers still pending. Viral studies still pending to rule out H1 N1. He is tolerating tube feeds. His fever curve and profile has improved. 12.21.2019: Inflammatory markers are severely elevated are improving. Several febrile spikes with diaphoresis last evening and is now been hypothermic. Calcitonin is not elevated significantly Reason for ICU Addmission:: Severe hypoxia with SARS, 2-CoViD19 and influenza A - Medications: Sedation:: Precedex , versed, dilaudid Physical Exam Vital Signs: Temp Pulse Resp BP Pulse Ox 100.9 F H 87 18 113/70 96 12/25/19 06:00 12/24/19 20:00 12/23/19 19:00 12/22/19 10:00 12/25/19 06:00 Intake & Output 12/24/19 12/25/19 12/26/19 06:59 06:59 06:59 Intake Total 3327.5 2248 Output Total 2940 5200 Balance 387.5 -2952 Weight 95.1 kg 89.2 kg Weight/Height Weight 89.2 kg Height 5 ft 8 in General appearance: PRESENT: no acute distress, morbidly obese, other - No distress during sedation. Prior to extubation patient was extremely anxious and required Versed and restraint Eye exam: PRESENT: conjunctiva pink, PERRLA, scleral icterus, other - Lip and facial swelling is improved but still present. There is no stridor and there was a cuff leak prior to extubation. ABSENT: conjunctival injection, nystagmus Mouth exam: PRESENT: moist Neck exam: PRESENT: full ROM. ABSENT: JVD, lymphadenopathy, tenderness, thyromegaly, tracheal deviation Respiratory exam: PRESENT: unlabored, other - Lung sounds not auscultated secondary to the confines of PPE and poor auditory capability of disposable stethoscope. ABSENT: accessory muscle use, tachypnea Cardiovascular exam: PRESENT: RRR, +S1, +S2, tachycardia - During vent liberation. Improved over time without medication, other - Heart sounds not auscultated secondary to the confines of PPE and poor auditory capability of disposable stethoscope. ABSENT: bradycardia Pulses: PRESENT: +1 pedal pulses bilateral Vascular exam: ABSENT: pallor GI/Abdominal exam: PRESENT: soft, other - Gastric sounds not auscultated secondary to the confines of PPE and poor auditory capability of disposable stethoscope. ABSENT: ascites, distended, guarding, mass, organolmegaly, rebound, tenderness Rectal exam: PRESENT: deferred Gentrourinary exam: PRESENT: indwelling catheter Extremities exam: PRESENT: pedal edema Musculoskeletal exam: ABSENT: deformity, dislocation Neurological exam: PRESENT: altered, awake. ABSENT: motor sensory deficit Psychiatric exam: PRESENT: agitated, anxious Skin exam: PRESENT: dry, intact, warm. ABSENT: cyanosis, rash Tubes/Lines: PRESENT: Endotracheal Tube, Central Line, Arterial Catheter - Rojo type urinary catheter, orogastric tube Laboratory/Radiographs Laboratory Results: 12/25/19 04:23 12/25/19 04:23 12/24/19 12/24/19 12/25/19 17:00 21:05 04:23 WBC RBC Hgb Hct MCV MCH MCHC RDW Plt Count Seg Neutrophils % Carbonic Acid 1.32 1.31 HCO3/H2CO3 Ratio 23:1 22:1 ABG pH 7.47 H 7.45 ABG pCO2 44.0 43.5 ABG pO2 85.9 81.0 ABG HCO3 31.1 H 29.8 H ABG O2 Saturation 96.9 96.4 ABG Base Excess 6.5 5.1 FiO2 35% 35% Sodium 136.5 L Potassium 4.0 Chloride 102 Carbon Dioxide 30 Anion Gap 5 BUN 17 Creatinine 0.52 Est GFR ( Amer) > 60 Glucose 314 H Calcium 7.8 L Phosphorus 3.8 Magnesium 2.5 H Ferritin C-Reactive Protein 12/25/19 12/25/19 04:23 04:23 WBC 7.7 RBC 4.65 Hgb 14.6 Hct 40.4 MCV 87 MCH 31.3 MCHC 36.1 H RDW 12.1 Plt Count 336 Seg Neutrophils % Not Reportable Carbonic Acid HCO3/H2CO3 Ratio ABG pH ABG pCO2 ABG pO2 ABG HCO3 ABG O2 Saturation ABG Base Excess FiO2 Sodium 134.3 L Potassium 4.3 Chloride 99 Carbon Dioxide 30 Anion Gap 5 BUN 18 Creatinine 0.54 Est GFR ( Amer) > 60 Glucose 317 H Calcium 7.8 L Phosphorus 3.8 Magnesium 2.4 H Ferritin 1740.00 H C-Reactive Protein 32.7 H 12/18/19 22:15 Blood Blood Culture (PCR) - Final 12/21/19 03:10 Creatine Kinase 593 H Impressions: Chest X-Ray 12/20/19 10:21 IMPRESSION: Interval placement of endotracheal tube, NG tube and central line as described. No pneumothorax. Support lines and tubes are in satisfactory position. Persistent diffuse bilateral pneumonia. All labs, radiographs, diagnostic studies and EKGs were personally reviewed: Yes In addition, reports of radiographic and diagnostic studies were read: Yes Assessment and Plan - Diagnosis (1) Acute respiratory failure with hypoxia Is this a current diagnosis for this admission?: Yes (2) COVID-19 virus detected Is this a current diagnosis for this admission?: Yes (3) Bilateral pneumonia Qualifiers: Pneumonia type: due to unspecified organism Lung location: unspecified part of lung Qualified Code(s): J18.9 - Pneumonia, unspecified organism Is this a current diagnosis for this admission?: Yes (4) Diabetes mellitus type 2 in obese Is this a current diagnosis for this admission?: Yes (5) Influenza A Is this a current diagnosis for this admission?: Yes (6) Multifocal pneumonia Is this a current diagnosis for this admission?: Yes Plan Summary: 12.25.2019: A consider amount of time was spent in preparation and and liberation of this patient from the ventilator. We used an extubation type tent to protect healthcare providers from inappropriate exposure particulate matter. We will reduce steroids in order to reduce the glucose elevation. Started on insulin drip until we can gain full control. Continue vancomycin for at least 10 days 2 weeks. Meropenem for 7 days total. We will start physical therapy in the morning however patient is SARS, 2-CoViD19 positive and we want to limit healthcare providers interaction. There is a large body of evidence to support recrudescence of respiratory distress and will be prudent to watch this patient for this. Continue antihypertensives however he may not need these now that he is extubated. Continue supportive care. Speech and swallow eval in the morning Strong response to diuresis. Will stop Lasix for the time being. 12.24.2019: We will continue to provide respiratory support until we can improve secretions. We will begin to diurese today today determine whether this would help his weaning parameters. His inflammatory markers continue to improve and Plaquenil was completed yesterday. Discontinued Lovenox therapy but we will will be on Lovenox prophylaxis for DVT. Obviously sedation and agitation will be a competing issue and will need to monitor him judiciously. And will be to extubate him in a respiratory tent with backup plan for intubation should that occur. He is not a candidate for BiPAP but we may be able to place him on safety controlled CPAP high flow fails. Patient continues on Jeane nasal lid and has gram-positive cocci in clusters growing in his bloodstream. I am assuming this is coming from a secondary pneumonia from influenza and SARS, 2-CoViD19. It appears that his lungs are improving and we use linezolid for better lung penetration. Linezolid is not the best drug for bacteremia and so will switch to vancomycin; Will repeat blood cultures in AM. If positive will need a SOCO Patient has had significant hypertension and have needed to use hydralazine. This may be also as a result of Linezolid and we will discontinue this. In the meantime we will start on Norvasc and continue hydralazine as needed 12.23.2019: Patient is improving in the expected trajectory. I am impressed with his dramatic recovery despite H1 N1 viral pneumonitis in addition to SARS, 2-C oViD19 pneumonitis He is noted to have gram-positive's in his bloodstream and he is on gram-positive coverage pending speciation Given his improvement we will begin the process of slow and gentle weaning from the ventilator. Drawing on data from [place] and our [place] colleagues confirmed by physicians and clinicians in the [facility], we will need to be vigilant to not liberate too quickly. Continue supportive care. We will attempt to move to a negative airflow room in anticipation for vent liberation in the next 24 hours Continue to monitor inflammatory parameters start We will start dexmedetomidine Watch for DVTs and continue anticoagulation. 12.22.2019: Overall significant improvement in his oxygenation status. He has recruitable lung and we have reduced his FiO2 as well as his PEEP. We will maintain him at 45 to 50% FiO2 as well as 10 of PEEP to maintain lung volumes and prevent atelectasis. We will continue to follow inflammatory markers. D-dimer is of importance and will continue full treatment Lovenox as long as the d-dimer is above 1. He has had no bleeding as a result of this. QT C is within normal limits. Continue nutritional support Continue to maintain significant sedation to prevent inadvertent ET tube removal Consider lengthening weaning process given the history of SARS, 2-CoViD19 high prevalence of recrudescence of hypoxia Reevaluation of the patient's lip shows improvement in swelling. There appears to be no other injuries related to his chronic process. Will attempt to wean sedation momentarily check neurological status 4.9.2020: Patient appears to be improving well from his initial hypoxic event. Continue in prone position until we can reduce his FiO2 to 50%. Typically, proning is done for up to 18 hours. Given his and dramatic improvement I am reticent to supinate him too soon. We will attempt to get his FiO2 to 50% PEEP at 10 and attempt supine positioning in the morning. Even his elevated d-dimer is which is seen with SARS, 2-CoViD19 we have placed him on full supportive treatment of Lovenox. He is on Plaquenil and all the supplementary medications to support oxygenation- coupling disruption of the hemoglobin molecule--hopefully vitamin C will add to this improvement. He is started on enteral nutrition appears to be tolerating it well. Full observation of contact points to prevent pressure sores will need to be maintained. Critical Time Critical Time (minutes): 75 Level of Care: ICU -: 1. The care of a critical patient is a dynamic process. This note is a dermatology sales representative synopsis but static in nature. The timeframe for treatments given in order is not necessarily the actual time these treatments may have been done. 2. This patient requires critical care secondary to ongoing requirements for therapy not offered or safe outside the critical care environment. Transfer to a lower level of care will result in altered life or limb morbidity and mortality. 3. Multidisciplinary rounds completed. 4. ABCDE bundle addressed.
[2019-12-25] MEDS: VANCOMYCIN HCL 1,250 MG in NORMAL SALINE 250 ML IV SCH (21:22)
[2019-12-25] MEDS: METHYLPREDNISOLONE INJ 40 MG/1 ML SDV IV SCH (21:32)
[2019-12-25] MEDS ORDERED: INSULIN GLARGINE,HUM.REC.ANLOG 1,000 UNIT/10 ML VIAL SUBCUT SCH (22:00)
[2019-12-25] MEDS ORDERED: METHYLPREDNISOLONE INJ 125 MG/2 ML SDV IV SCH (22:00)
[2019-12-26] MEDS: ASCORBIC ACID 500 MG TABLET NG SCH ×3 (01:06→17:12)
[2019-12-26] MEDS: DEXMEDETOMIDINE IN 0.9 % NACL 400 MCG/100 ML RTUPB IV PRN ×6 (02:17→22:59)
[2019-12-26] MEDS: VANCOMYCIN HCL 1,250 MG in NORMAL SALINE 250 ML IV SCH (03:14)
[2019-12-26 03:52] LABS: HEMATOCRIT 40.8 % (37.9-51.0); HEMOGLOBIN 14.7 g/dL (13.5-17.0); MEAN CORPUSCULAR HEMOGLOBIN 30.9 pg (27.0-33.4); MEAN CORPUSCULAR HGB CONC 36.1 g/dL (32.0-36.0); MEAN CORPUSCULAR VOLUME 86 fl (80-97); PLATELET COUNT 271 10^3/uL (150-450); RED BLOOD COUNT 4.77 10^6/uL (4.35-5.55); RED CELL DISTRIBUTION WIDTH 12.1 % (11.5-14.0); WHITE BLOOD COUNT 11.4 10^3/uL (4.0-10.5)
[2019-12-26 04:08] LABS: BLOOD UREA NITROGEN 18 mg/dL (7-20); C-REACTIVE PROTEIN 24.7 mg/L (<10.0); CALCIUM 8.3 mg/dL (8.4-10.2); CARBON DIOXIDE 33 mmol/L (22-30); CHLORIDE 99 mmol/L (98-107); GLUCOSE 157 mg/dL (75-110); PHOSPHORUS 3.6 mg/dL (2.5-4.5); POTASSIUM 3.7 mmol/L (3.6-5.0)
[2019-12-26 04:15] LABS: ANION GAP 4 (5-19)
[2019-12-26 04:26] LABS: ABSOLUTE LYMPHOCYTES# (MANUAL) 1.5 10^3/uL (0.5-4.7); ABSOLUTE MONOCYTES # (MANUAL) 0.6 10^3/uL (0.1-1.4); BASOPHILS % (MANUAL) 0 % (0-2); EOSINOPHILS % (MANUAL) 0 % (0-6); LYMPHOCYTES % (MANUAL) 13 % (13-45); MONOCYTES % (MANUAL) 5 % (3-13); PLATELET COMMENT ADEQUATE; POLYCHROMASIA SLIGHT; SCHISTOCYTES SLIGHT; SEGMENTED NEUTROPHILS % (MAN) 82 % (42-78); TEAR DROP CELLS SLIGHT; TOTAL CELLS COUNTED 100; TOXIC GRANULATION 1+
[2019-12-26] MEDS: MEROPENEM 1 GM in NORMAL SALINE 50 ML IV SCH ×3 (05:52→22:29)
[2019-12-26] MEDS ORDERED: AZITHROMYCIN 500 MG in NORMAL SALINE 250 ML IV SCH (10:00)
[2019-12-26] MEDS: METHYLPREDNISOLONE INJ 40 MG/1 ML SDV IV SCH ×2 (10:45→21:34)
[2019-12-26] MEDS: FAMOTIDINE INJ/PF 20 MG/2 ML SDV IV SCH ×2 (10:45→21:34)
[2019-12-26] MEDS: ENOXAPARIN SODIUM INJ 40 MG/0.4 ML DISP.SYRIN SUBCUT SCH (10:45)
[2019-12-26] MEDS: CHOLECALCIFEROL (D3) 1,000 UNIT (25 MCG) TABLET NG SCH (10:46)
[2019-12-26] MEDS: AMLODIPINE BESYLATE 5 MG TABLET PO SCH ×2 (10:46→21:34)
[2019-12-26] MEDS: ZINC SULFATE 220 MG CAPSULE NG SCH (10:46)
[2019-12-26] MEDS ORDERED: DEXTROSE 40% GEL 15 GM TUBE PO PRN (14:02)
[2019-12-26] MEDS: INSULIN GLARGINE,HUM.REC.ANLOG 1,000 UNIT/10 ML VIAL SUBCUT SCH (15:53)
--- NOTE | 2019-12-26 16:58 | PDOC CRITICAL CARE PROG REPORT ---
General Date:: 12/26/19 ICU Day:: 7 Hospital Day:: 11 Resuscitation Status: Full Code Events in the past 12 to 24 Hours:: 12.26.2019: Patient was successfully extubated. He has been weaned from high flow down to 4 L nasal cannula. He passed a speech and swallow eval and has been advanced to full liquid diet. He has had no hemodynamic instability. His confusion is improving but still has some degree of delirium. 12.25.2019: Patient's respiratory status was sufficient enough to place patient on SBT. He continued to do well but agitation was a problem and his sedation occult to adjust secondary to the concerns for oversedation. We are unable to determine whether he has a strong alcohol history but he has been very agitated despite high doses of sedative medications. A controlled setting with an extubation attempt to prevent aerosolization of particles patient was successfully liberated from the ventilator. He was placed on high flow prior to the extubation and has been maintained on this without difficulty. [employer] he has been able to speak. There is no stridor and no hoarseness. 12.24.2019: Patient's respiratory status continues to improve and he has had no hypoxia with reduction in FiO2. Still has significant secretions. Inflammatory markers are dramatically improved but his ferritin although improved is still high. D-Dimer is less than 1 and full dose Lovenox has been stopped 12.23.2019: Patient was re-supinated yesterday and has maintain oxygen saturation with the reduction in FiO2. Overall his inflammatory parameters have dramatica lly improved with a reduction in his ferritin of greater than 50% followed by reduction in CRP and d-dimer. Peers to be responding to treatment. 12.22.2019: Patient has responded well to prone therapy and supplemental therapies for his dual pneumonia with SARS, 2-CoViD19 and influenza suspected to be H1 and 1. He has been prone for approximately 20 hours and has successfully weaned from 100% down to 40% FiO2. We have maintained him at 45% so as to assure continued adequate oxygenation. 12.21.2019: Patient urgently intubated and placed in prone position secondary to severe hypoxia related to influenza A and SARS, 2-CoViD19 Prone he has dramatically improved his oxygenation and he has now been weaned to 70%. His PEEP is now down to 10. He has a type H phenotype and responded to recruitment. His compliance has been good. Review of systems relevant to events:: 4.14.2020: Patient's blood culture appears to be contaminant and vancomycin have been discontinued. He is breathing more comfortably. He endorses that he is h ungry 12.25.2019: Patient's hypertension has improved. Viral studies still pending to determine if influenza A is a H1 N1 variant. Glucose has been high with the high-dose steroids and these are being reduced and insulin drip started 12.24.2019: Patient has been on pressure support wean however secretions limited his ability to be liberated from ventilator today. There has been no bleeding on Lovenox. Is tolerating tube feeds. Fever curve is noted and are improved. 12.23.2019: As noted above inflammatory parameters are improved. Revealed a leukocyte ratio has improved. He is still being ventilated with an FiO2 of 45%. Chest x-rays have been done secondary to SARS, 2-CoViD19 restrictions 12.22.2019: Lateral left lip. Despite optimal cushioning of contact areas this appears to be related to the ET tube presence. There is to be no other injury pattern. Inflammatory studies and markers still pending. Viral studies still pending to rule out H1 N1. He is tolerating tube feeds. His fever curve and profile has improved. 12.21.2019: Inflammatory markers are severely elevated are improving. Several febrile spikes with diaphoresis last evening and is now been hypothermic. Calcitonin is not elevated significantly Reason for ICU Addmission:: Severe hypoxia with SARS, 2-CoViD19 and influenza A - Medications: Vasopressors:: None Sedation:: Precedex , dilaudid off Physical Exam Vital Signs: Temp Pulse Resp BP Pulse Ox 97.9 F 86 19 148/93 H 90 L 12/26/19 14:00 12/26/19 07:53 12/26/19 14:00 12/26/19 13:23 12/26/19 14:00 Intake & Output 12/25/19 12/26/19 12/27/19 06:59 06:59 06:59 Intake Total 2248 2031 213 Output Total 5200 5850 1440 Balance -8903 -8724 -3573 Weight 89.2 kg 83.5 kg Weight/Height Weight 83.5 kg Height 5 ft 8 in General appearance: PRESENT: no acute distress, disheveled, morbidly obese Exam: Toxic older appearing ill male 39 years old no acute distress Eye exam: PRESENT: conjunctiva pink, EOMI, PERRLA. ABSENT: conjunctival injection, nystagmus, scleral icterus Mouth exam: PRESENT: neck supple, other - Still has some mild tongue and facial swelling but improved Neck exam: ABSENT: JVD, lymphadenopathy, tenderness, thyromegaly Respiratory exam: PRESENT: unlabored, other - Lung sounds not auscultated secondary to the confines of PPE and poor auditory capability of disposable stethoscope. ABSENT: accessory muscle use, tachypnea Cardiovascular exam: PRESENT: RRR, other - Heart sounds not auscultated secondary to the confines of PPE and poor auditory capability of disposable stethoscope. ABSENT: bradycardia, irregular rhythm, tachycardia Pulses: PRESENT: +1 pedal pulses bilateral Vascular exam: PRESENT: normal capillary refill. ABSENT: pallor GI/Abdominal exam: PRESENT: soft, other - Gastric sounds not auscultated secondary to the confines of PPE and poor auditory capability of disposable stethoscope. ABSENT: ascites, rigid, tenderness Rectal exam: PRESENT: deferred Gentrourinary exam: PRESENT: indwelling catheter Musculoskeletal exam: ABSENT: deformity, dislocation Neurological exam: PRESENT: altered, awake, oriented to person, CN II-XII grossl y intact. ABSENT: oriented to place, oriented to time, oriented to situation, motor sensory deficit Psychiatric exam: PRESENT: unusual affect. ABSENT: agitated Focused psych exam: PRESENT: psychomotor agitation, restlessness. ABSENT: pressured speech Skin exam: PRESENT: dry, intact, warm. ABSENT: cyanosis, mottled, rash Tubes/Lines: PRESENT: Central Line, Arterial Catheter - Rojo type urinary catheter Laboratory/Radiographs Laboratory Results: 12/26/19 03:19 12/26/19 03:19 12/26/19 12/26/19 03:19 03:19 WBC 11.4 H RBC 4.77 Hgb 14.7 Hct 40.8 MCV 86 MCH 30.9 MCHC 36.1 H RDW 12.1 Plt Count 271 Seg Neutrophils % Not Reportable Sodium 135.8 L Potassium 3.7 Chloride 99 Carbon Dioxide 33 H Anion Gap 4 L BUN 18 Creatinine 0.38 L Est GFR ( Amer) > 60 Glucose 157 H Calcium 8.3 L Phosphorus 3.6 Magnesium 2.3 Ferritin 1730.00 H C-Reactive Protein 24.7 H 12/18/19 22:15 Blood Blood Culture (PCR) - Final 12/18/19 22:15 Blood Blood Culture - Final Micrococcus Species 12/21/19 03:10 Creatine Kinase 593 H Impressions: Chest X-Ray 12/20/19 10:21 IMPRESSION: Interval placement of endotracheal tube, NG tube and central line as described. No pneumothorax. Support lines and tubes are in satisfactory position. Persistent diffuse bilateral pneumonia. All labs, radiographs, diagnostic studies and EKGs were personally reviewed: Yes In addition, reports of radiographic and diagnostic studies were read: Yes Assessment and Plan - Diagnosis (1) Acute respiratory failure with hypoxia Is this a current diagnosis for this admission?: Yes (2) COVID-19 virus detected Is this a current diagnosis for this admission?: Yes (3) Bilateral pneumonia Qualifiers: Pneumonia type: due to unspecified organism Lung location: unspecified part of lung Qualified Code(s): J18.9 - Pneumonia, unspecified organism Is this a current diagnosis for this admission?: Yes (4) Delirium due to another medical condition, acute, hyperactive Is this a current diagnosis for this admission?: Yes (5) Diabetes mellitus type 2 in obese Is this a current diagnosis for this admission?: Yes (6) Influenza A Is this a current diagnosis for this admission?: Yes (7) Multifocal pneumonia Is this a current diagnosis for this admission?: Yes Plan Summary: 12.26.2019: Patient continues to show steady improvement and anticipate that he will be able to be transferred to [facility] in the next 12 to 24 hours. He still has some mild degree of delirium but continues to improve with reassurance and guidance. He requires medications for control of agitation which is why he is still in the ICU in addition he has been hypoxic requiring oxygen. His inflammatory parameters have improved remarkably and he has a marked reduction in his d-dimer. We will continue to follow for any recrudescence of symptoms which can occur in the situations. Continues meropenem for 1 more day and the vancomycin has been discontinued. We will discontinue Rojo, central venous access and arterial catheter Will involve physical therapy however with SARS, 2-CoViD19 and influenza disease will have to be assured of safety and protection of staff. Will control delirium with Precedex and wean as tolerated. Continue to wean FiO2 currently patient is on nasal cannula at 4 L. 12.25.2019: A considerable amount of time was spent in preparation and and liberation of this patient from the ventilator. We used an extubation type tent to protect healthcare providers from inappropriate exposure particulate matter. We will reduce steroids in order to reduce the glucose elevation. Started on insulin drip until we can gain full control. Continue vancomycin for at least 10 days 2 weeks. Meropenem for 7 days total. We will start physical therapy in the morning however patient is SARS, 2-CoViD19 positive and we want to limit healthcare providers interaction. There is a large body of evidence to support recrudescence of respiratory distress and will be prudent to watch this patient for this. Continue antihypertensives however he may not need these now that he is extubated. Continue supportive care. Speech and swallow eval in the morning Strong response to diuresis. Will stop Lasix for the time being. 12.24.2019: We will continue to provide respiratory support until we can improve secretions. We will begin to diurese today today determine whether this would help his weaning parameters. His inflammatory markers continue to improve and Plaquenil was completed yesterday. Discontinued Lovenox therapy but we will will be on Lovenox prophylaxis for DVT. Obviously sedation and agitation will be a competing issue and will need to monitor him judiciously. And will be to extubate him in a respiratory tent with backup plan for intubation should that occur. He is not a candidate for BiPAP but we may be able to place him on safety controlled CPAP high flow fails. Patient continues on Jeane nasal lid and has gram-positive cocci in clusters growing in his bloodstream. I am assuming this is coming from a secondary pneumonia from influenza and SARS, 2-CoViD19. It appears that his lungs are improving and we use linezolid for better lung penetration. Linezolid is not th e best drug for bacteremia and so will switch to vancomycin; Will repeat blood cultures in AM. If positive will need a SOCO Patient has had significant hypertension and have needed to use hydralazine. This may be also as a result of Linezolid and we will discontinue this. In the meantime we will start on Norvasc and continue hydralazine as needed 12.23.2019: Patient is improving in the expected trajectory. I am impressed with his dramatic recovery despite H1 N1 viral pneumonitis in addition to SARS, 2- CoViD19 pneumonitis He is noted to have gram-positive's in his bloodstream and he is on gram- positive coverage pending speciation Given his improvement we will begin the process of slow and gentle weaning from the ventilator. Drawing on data from [place] and our [place] colleagues confirmed by physicians and clinicians in the [facility], we will need to be vigilant to not liberate too quickly. Continue supportive care. We will attempt to move to a negative airflow room in anticipation for vent liberation in the next 24 hours Continue to monitor inflammatory parameters start We will start dexmedetomidine Watch for DVTs and continue anticoagulation. 12.22.2019: Overall significant improvement in his oxygenation status. He has recruitable lung and we have reduced his FiO2 as well as his PEEP. We will maintain him at 45 to 50% FiO2 as well as 10 of PEEP to maintain lung volumes and prevent atelectasis. We will continue to follow inflammatory markers. D-dimer is of importance and will continue full treatment Lovenox as long as the d-dimer is above 1. He has had no bleeding as a result of this. QT C is within normal limits. Continue nutritional support Continue to maintain significant sedation to prevent inadvertent ET tube removal Consider lengthening weaning process given the history of SARS, 2-CoViD19 high prevalence of recrudescence of hypoxia Reevaluation of the patient's lip shows improvement in swelling. There appears to be no other injuries related to his chronic process. Will attempt to wean sedation momentarily check neurological status 12.21.2019: Patient appears to be improving well from his initial hypoxic event. Continue in prone position until we can reduce his FiO2 to 50%. Typically, proning is done for up to 18 hours. Given his and dramatic improvem ent I am reticent to supinate him too soon. We will attempt to get his FiO2 to 50% PEEP at 10 and attempt supine positioning in the morning. Even his elevated d-dimer is which is seen with SARS, 2-CoViD19 we have placed him on full supportive treatment of Lovenox. He is on Plaquenil and all the supplementary medications to support oxygenation- coupling disruption of the hemoglobin molecule--hopefully vitamin C will add to this improvement. He is started on enteral nutrition appears to be tolerating it well. Full observation of contact points to prevent pressure sores will need to be maintained. Critical Time Critical Time (minutes): 38 Level of Care: ICU -: 1. The care of a critical patient is a dynamic process. This note is a customer solutions representative synopsis but static in nature. The timeframe for treatments given in order is not necessarily the actual time these treatments may have been done. 2. This patient requires critical care secondary to ongoing requirements for therapy not offered or safe outside the critical care environment. Transfer to a lower level of care will result in altered life or limb morbidity and mortality. 3. Multidisciplinary rounds completed. 4. ABCDE bundle addressed.
[2019-12-26] MEDS: HYDROMORPHONE HCL INJ/PF 2 MG/ML AMPULE IV PRN (17:11)
[2019-12-26] MEDS ORDERED: INSULIN LISPRO 100 UNIT/ML 3 ML VIAL SUBCUT SCH (18:00)
[2019-12-26 18:36] LABS: RES PRO RESPIR SYNCYTIAL VIRUS Not Detected (Not Detect); RES PRO RHINOVIRUS/ENTEROVIRUS Not Detected (Not Detect); RESP PRO CHLAMYDOPHILA PNEUMON Not Detected (Not Detect); RESP PRO INFLUENZA A/H1-2009 Not Detected (Not Detect); RESP PROF BORDETELLA PERTUSSIS Not Detected (Not Detect); RESP PROF CORONAVIRUS 229E Not Detected (Not Detect); RESP PROF CORONAVIRUS HKU1 Not Detected (Not Detect); RESP PROF CORONAVIRUS NL63 Not Detected (Not Detect); RESP PROF CORONAVIRUS OC43 Not Detected (Not Detect); RESP PROF INFLUENZA A/H1 Not Detected (Not Detect); RESP PROF INFLUENZA A/H3 Not Detected (Not Detect); RESP PROF METAPNEUMOVIRUS Not Detected (Not Detect); RESP PROF PARAINFLUENZA 1 Not Detected (Not Detect); RESP PROF PARAINFLUENZA 2 Not Detected (Not Detect); RESP PROF PARAINFLUENZA 3 Not Detected (Not Detect); RESP PROF PARAINFLUENZA 4 Not Detected (Not Detect); RESPIRATORY PROF INFLUENZA A Not Detected (Not Detect); RESPIRATORY PROF INFLUENZA B Not Detected (Not Detect)
[2019-12-26] MEDS: INSULIN LISPRO 100 UNIT/ML 3 ML VIAL SUBCUT SCH (21:39)
[2019-12-26] MEDS: MELATONIN 5 MG TABLET NG SCH (21:39)
[2019-12-27] MEDS ORDERED: QUETIAPINE FUMARATE 100 MG TABLET PO ONE (00:56)
[2019-12-27] MEDS: INSULIN LISPRO 100 UNIT/ML 3 ML VIAL SUBCUT SCH ×6 (02:08→21:43)
[2019-12-27] MEDS: ASCORBIC ACID 500 MG TABLET NG SCH ×3 (02:19→18:49)
[2019-12-27] MEDS: MEROPENEM 1 GM in NORMAL SALINE 50 ML IV SCH (05:28)
[2019-12-27] MEDS: DEXMEDETOMIDINE IN 0.9 % NACL 400 MCG/100 ML RTUPB IV PRN ×4 (05:29→14:39)
[2019-12-27 08:24] LABS: RESP PRO MYCOPLASMA PNEUMONIAE Not Detected (Not Detect)
[2019-12-27] MEDS: INSULIN GLARGINE,HUM.REC.ANLOG 1,000 UNIT/10 ML VIAL SUBCUT SCH (09:46)
[2019-12-27] MEDS: ENOXAPARIN SODIUM INJ 40 MG/0.4 ML DISP.SYRIN SUBCUT SCH (09:47)
[2019-12-27] MEDS: ZINC SULFATE 220 MG CAPSULE NG SCH (09:48)
[2019-12-27] MEDS: CHOLECALCIFEROL (D3) 1,000 UNIT (25 MCG) TABLET NG SCH (09:48)
[2019-12-27] MEDS: METHYLPREDNISOLONE INJ 40 MG/1 ML SDV IV SCH ×2 (09:48→21:38)
[2019-12-27] MEDS: AMLODIPINE BESYLATE 5 MG TABLET PO SCH ×2 (09:48→21:37)
[2019-12-27] MEDS: FAMOTIDINE INJ/PF 20 MG/2 ML SDV IV SCH ×2 (13:42→21:37)
--- NOTE | 2019-12-27 17:35 | PDOC CRITICAL CARE PROG REPORT ---
General Date:: 12/27/19 ICU Day:: 8 Hospital Day:: 12 Resuscitation Status: Full Code Events in the past 12 to 24 Hours:: 12.27.2019: Patient has done extremely well. Delirium required treatment with seroquel and melatonin. Oriented now. Had transient urinary retention with one single catherization. Did not sleep well. Oxygen saturation is 94% on 4 liters. Tolerated full liquids. Tachypnea transient with positioning. 12.26.2019: Patient was successfully extubated. He has been weaned from high flow down to 4 L nasal cannula. He passed a speech and swallow eval and has been advanced to full liquid diet. He has had no hemodynamic instability. His confusion is improving but still has some degree of delirium. 12.25.2019: Patient's respiratory status was sufficient enough to place patient on SBT. He continued to do well but agitation was a problem and his sedation occult to adjust secondary to the concerns for oversedation. We are unable to determine whether he has a strong alcohol history but he has been very agitated despite high doses of sedative medications. A controlled setting with an extubation attempt to prevent aerosolization of particles patient was successfully liberated from the ventilator. He was placed on high flow prior to the extubation and has been maintained on this without difficulty. 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 There is no stridor and no hoarseness. 12.24.2019: Patient's respiratory status continues to improve and he has had no hypoxia with reduction in FiO2. Still has significant secretions. Inflammatory markers are dramatically improved but his ferritin although improved is still high. D-Dimer is less than 1 and full dose Lovenox has been stopped 12.23.2019: Patient was re-supinated yesterday and has maintain oxygen saturation with the reduction in FiO2. Overall his inflammatory parameters have dramatically improved with a reduction in his ferritin of greater than 50% followed by reduction in CRP and d-dimer. Peers to be responding to treatment. 12.22.2019: Patient has responded well to prone therapy and supplemental therapies for his dual pneumonia with SARS, 2-CoViD19 and influenza suspected to be H1 and 1. He has been prone for approximately 20 hours and has successfully weaned from 100% down to 40% FiO2. We have maintained him at 45% so as to assure continued adequate oxygenation. 12.21.2019: Patient urgently intubated and placed in prone position secondary to severe hypoxia related to influenza A and SARS, 2-CoViD19 Prone he has dramatically improved his oxygenation and he has now been weaned to 70%. His PEEP is now down to 10. He has a type H phenotype and responded to recruitment. His compliance has been good. Review of systems relevant to events:: 12.27.2019: Chemical parameters continue to improve except for white blood cell count. Suspect this may be related to steroids. Steroids have been reduced. Patient started on Lantus, glucose has improved. Of significance his influenza screen was positive for influenza A however PCR is negative. 12.26.2019: Patient's blood culture appears to be contaminant and vancomycin have been discontinued. He is breathing more comfortably. He endorses that he is hungry 12.25.2019: Patient's hypertension has improved. Viral studies still pending to determine if influenza A is a H1 N1 variant. Glucose has been high with the high-dose steroids and these are being reduced and insulin drip started 12.24.2019: Patient has been on pressure support wean however secretions limited his ability to be liberated from ventilator today. There has been no bleeding on Lovenox. Is tolerating tube feeds. Fever curve is noted and are improved. 12.23.2019: As noted above inflammatory parameters are improved. Revealed a leukocyte ratio has improved. He is still being ventilated with an FiO2 of 45%. Chest x-rays have been done secondary to SARS, 2-CoViD19 restrictions 12.22.2019: Lateral left lip. Despite optimal cushioning of contact areas this appears to be related to the ET tube presence. There is to be no other injury p attern. Inflammatory studies and markers still pending. Viral studies still pending to rule out H1 N1. He is tolerating tube feeds. His fever curve and profile has improved. 12.21.2019: Inflammatory markers are severely elevated are improving. Several febrile spikes with diaphoresis last evening and is now been hypothermic. Calcitonin is not elevated significantly Reason for ICU Addmission:: Severe hypoxia with SARS, 2-CoViD19 and influenza A - Medications: Vasopressors:: None Sedation:: Precedex , dilaudid off Physical Exam Vital Signs: Temp Pulse Resp BP Pulse Ox 98.1 F 74 22 H 130/82 H 94 12/27/19 02:00 12/26/19 20:00 12/27/19 06:01 12/27/19 06:01 12/27/19 06:01 Intake & Output 12/26/19 12/27/19 12/28/19 06:59 06:59 06:59 Intake Total 2030 117 Output Total 5879 2086 Balance -3086 -4631 Weight 83.5 kg 78.9 kg Weight/Height Weight 78.9 kg Height 5 ft 8 in General appearance: PRESENT: no acute distress, disheveled, morbidly obese Exam: Pleasant nontoxic 39-year-old male no acute distress Eye exam: PRESENT: conjunctiva pink, EOMI, PERRLA. ABSENT: conjunctival injection, nystagmus, scleral icterus Mouth exam: PRESENT: moist, tongue midline Neck exam: ABSENT: JVD, lymphadenopathy, tenderness, tracheal deviation Respiratory exam: PRESENT: other - Lung sounds not auscultated secondary to the confines of PPE and poor auditory capability of disposable stethoscope. Oxygen saturation off room air is 91 to 92%. ABSENT: accessory muscle use, tachypnea, unlabored Cardiovascular exam: PRESENT: other - Heart sounds not auscultated secondary to the confines of PPE and poor auditory capability of disposable stethoscope. ABSENT: bradycardia, irregular rhythm, tachycardia Pulses: PRESENT: +2 pedal pulses bilateral GI/Abdominal exam: PRESENT: soft, other - Gastric sounds not auscultated secondary to the confines of PPE and poor auditory capability of disposable stethoscope. ABSENT: firm, guarding, Chan's sign, organolmegaly, rebound, rigid Rectal exam: PRESENT: deferred Gentrourinary exam: ABSENT: indwelling catheter Extremities exam: ABSENT: pedal edema Musculoskeletal exam: ABSENT: deformity, dislocation Neurological exam: PRESENT: alert, awake, oriented to person, oriented to place, CN II-XII grossly intact. ABSENT: motor sensory deficit Psychiatric exam: PRESENT: unusual affect Focused psych exam: PRESENT: restlessness Skin exam: PRESENT: dry, intact, warm. ABSENT: cyanosis, rash Tubes/Lines: PRESENT: Other - Central line arterial catheter and Orjo catheter are removed Laboratory/Radiographs Laboratory Results: 12/26/19 03:19 12/26/19 03:19 12/18/19 22:15 Blood Blood Culture (PCR) - Final 12/18/19 22:15 Blood Blood Culture - Final Micrococcus Species 12/21/19 03:10 Creatine Kinase 593 H Impressions: Chest X-Ray 12/20/19 10:21 IMPRESSION: Interval placement of endotracheal tube, NG tube and central line as described. No pneumothorax. Support lines and tubes are in satisfactory position. Persistent diffuse bilateral pneumonia. All labs, radiographs, diagnostic studies and EKGs were personally reviewed: Yes In addition, reports of radiographic and diagnostic studies were read: Yes Assessment and Plan - Diagnosis (1) Encephalopathy, metabolic Is this a current diagnosis for this admission?: Yes Plan: Most likely secondary to combination of medications and the possibility of SARS, 2-CoViD19 related encephalitis. Improving over time (2) Acute respiratory failure with hypoxia Is this a current diagnosis for this admission?: Yes (3) COVID-19 virus detected Is this a current diagnosis for this admission?: Yes (4) Bilateral pneumonia Qualifiers: Pneumonia type: due to unspecified organism Lung location: unspecified part of lung Qualified Code(s): J18.9 - Pneumonia, unspecified organism Is this a current diagnosis for this admission?: Yes (5) Delirium due to another medical condition, acute, hyperactive Is this a current diagnosis for this admission?: Yes (6) Diabetes mellitus type 2 in obese Is this a current diagnosis for this admission?: Yes (7) Influenza A Is this a current diagnosis for this admission?: Yes (8) Multifocal pneumonia Is this a current diagnosis for this admission?: Yes Plan: Improved Plan Summary: 12.27.2019: Patient is improving in the expected trajectory. He is now off nasal cannula with a saturation of 91 to 90% with activity. Become quite active and is anxious to get out of bed. His delirium has improved but he still needs to be redirected. Precedex is weaning and as soon as this is weaned to off he would be a candidate for transition to medical floor. I have discontinued all antibiotics. We will need to watch his white blood cell count. The elevation may be related to the steroids that we started him on however will need to watch for recrudescence of infection. Laboratory markers have been sent. Blood cultures are all negative. He was started on a clear liquid diet but is not always awake enough to complete. His night and day cycles appear to be disrupted and he has been started on melatonin at night. We will continue supportive care Plans have been set for education of this patient when he is discharged Accordingly, CDC guidelines stipulate: "The decision to discontinue Transmission-Based Precautions should be made using a test-based strategy or a qkm-nwnj-yfdsh strategy (i.e., kugc-dllwy-plasbck-onset and pllz-oagox-aerrligm strategy). Meeting criteria for discontinuation of Transmission-Based Precautions is not a prerequisite for discharge. Test-based strategy. Resolution of fever without the use of fever-reducing medications and improvement in respiratory symptoms (e.g., cough, shortness of breath), and Negative results of an FDA Emergency Use Authorized COVID-19 molecular assay for detection of SARS-CoV-2 RNA from at least two consecutive nasopharyngeal swab specimens collected 24 hours apart (total of two negative specimens) [1]. See Interim Guidelines for Collecting, Handling, and Testing Clinical Specimens for 2019 Novel Coronavirus (2019-nCoV). Bje-bxjw-ufswz strategy. At least 3 days (72 hours) have passed since recovery defined as resolution of fever without the use of fever-reducing medications and improvement in respiratory symptoms (e.g., cough, shortness of breath); and, At least 7 days have passed since symptoms first appeared When a Testing-Based Strategy is Preferred Hospitalized patients may have longer periods of SARS-CoV-2 RNA detection compared to patients with mild or moderate disease. Severely immunocompromised patients (e.g., medical treatment with immunosuppressive drugs, bone marrow or solid organ transplant recipients, inherited immunodeficiency, poorly controlled HIV) may also have longer periods of SARS-CoV-2 RNA detection and prolonged shedding of infectious recovery. These groups may be contagious for longer than others. In addition, placing a patient in a setting where they will have close contact with individuals at risk for severe disease warrants a conservative approach. Hence, a test-based strategy is preferred for discontinuation of transmission- based precautions for patients who are Hospitalized or Severely immunocompromised" 12.26.2019: Patient continues to show steady improvement and anticipate that he will be able to be transferred to [facility] in the next 12 to 24 hours. He still has some mild degree of delirium but continues to improve with reassurance and guidance. He requires medications for control of agitation which is why he is still in the ICU in addition he has been hypoxic requiring oxygen. His inflammatory parameters have improved remarkably and he has a marked reduction in his d-dimer. We will continue to follow for any recrudescence of symptoms which can occur in the situations. Continues meropenem for 1 more day and the vancomycin has been discontinued. We will discontinue Rojo, central venous access and arterial catheter Will involve physical therapy however with SARS, 2-CoViD19 and influenza disease will have to be assured of safety and protection of staff. Will control delirium with Precedex and wean as tolerated. Continue to wean FiO2 currently patient is on nasal cannula at 4 L. 12.25.2019: A considerable amount of time was spent in preparation and and liberation of this patient from the ventilator. We used an extubation type tent to protect healthcare providers from inappropriate exposure particulate matter. We will reduce steroids in order to reduce the glucose elevation. Started on insulin drip until we can gain full control. Continue vancomycin for at least 10 days 2 weeks. Meropenem for 7 days total. We will start physical therapy in the morning however patient is SARS, 2-CoViD19 positive and we want to limit healthcare providers interaction. There is a large body of evidence to support recrudescence of respiratory distress and will be prudent to watch this patient for this. Continue antihypertensives however he may not need these now that he is extubated. Continue supportive care. Speech and swallow eval in the morning Strong response to diuresis. Will stop Lasix for the time being. 12.24.2019: We will continue to provide respiratory support until we can improve secretions. We will begin to diurese today today determine whether this would help his weaning parameters. His inflammatory markers continue to improve and Plaquenil was completed yesterday. Discontinued Lovenox therapy but we will will be on Lovenox prophylaxis for DVT. Obviously sedation and agitation will be a competing issue and will need to monitor him judiciously. And will be to extubate him in a respiratory tent with backup plan for intubation should that occur. He is not a candidate for BiPAP but we may be able to place him on safety controlled CPAP high flow fails. Patient continues on Jeane nasal lid and has gram-positive cocci in clusters growing in his bloodstream. I am assuming this is coming from a secondary pneumonia from influenza and SARS, 2-CoViD19. It appears that his lungs are improving and we use linezolid for better lung penetration. Linezolid is not t he best drug for bacteremia and so will switch to vancomycin; Will repeat blood cultures in AM. If positive will need a SOCO Patient has had significant hypertension and have needed to use hydralazine. This may be also as a result of Linezolid and we will discontinue this. In the meantime we will start on Norvasc and continue hydralazine as needed 12.23.2019: Patient is improving in the expected trajectory. I am impressed with his dramatic recovery despite H1 N1 viral pneumonitis in addition to SARS, 2- CoViD19 pneumonitis He is noted to have gram-positive's in his bloodstream and he is on gram- positive coverage pending speciation Given his improvement we will begin the process of slow and gentle weaning from the ventilator. Drawing on data from [place] and our [place] colleagues confirmed by physicians and clinicians in the [facility], we will need to be vigilant to not liberate too quickly. Continue supportive care. We will attempt to move to a negative airflow room in anticipation for vent liberation in the next 24 hours Continue to monitor inflammatory parameters start We will start dexmedetomidine Watch for DVTs and continue anticoagulation. 12.22.2019: Overall significant improvement in his oxygenation status. He has recruitable lung and we have reduced his FiO2 as well as his PEEP. We will maintain him at 45 to 50% FiO2 as well as 10 of PEEP to maintain lung volumes and prevent atelectasis. We will continue to follow inflammatory markers. D-dimer is of importance and will continue full treatment Lovenox as long as the d-dimer is above 1. He has had no bleeding as a result of this. QT C is within normal limits. Continue nutritional support Continue to maintain significant sedation to prevent inadvertent ET tube removal Consider lengthening weaning process given the history of SARS, 2-CoViD19 high prevalence of recrudescence of hypoxia Reevaluation of the patient's lip shows improvement in swelling. There appears to be no other injuries related to his chronic process. Will attempt to wean sedation momentarily check neurological status 12.21.2019: Patient appears to be improving well from his initial hypoxic event. Continue in prone position until we can reduce his FiO2 to 50%. Typically, proning is done for up to 18 hours. Given his and dramatic improve ment I am reticent to supinate him too soon. We will attempt to get his FiO2 to 50% PEEP at 10 and attempt supine positioning in the morning. Even his elevated d-dimer is which is seen with SARS, 2-CoViD19 we have placed him on full supportive treatment of Lovenox. He is on Plaquenil and all the supplementary medications to support oxygenation- coupling disruption of the hemoglobin molecule--hopefully vitamin C will add to this improvement. He is started on enteral nutrition appears to be tolerating it well. Full observation of contact points to prevent pressure sores will need to be maintained. Critical Time Critical Time (minutes): 38 Level of Care: ICU -: 1. The care of a critical patient is a dynamic process. This note is a pharmaceutical representative synopsis but static in nature. The timeframe for treatments given in order is not necessarily the actual time these treatments may have been done. 2. This patient requires critical care secondary to ongoing requirements for therapy not offered or safe outside the critical care environment. Transfer to a lower level of care will result in altered life or limb morbidity and mortality. 3. Multidisciplinary rounds completed. 4. ABCDE bundle addressed.
[2019-12-27] MEDS: MELATONIN 5 MG TABLET NG SCH (21:34)
[2019-12-27] MEDS ORDERED: ACETAMINOPHEN SOLN 325 MG/10.15 ML UDCUP PO PRN (22:22)
[2019-12-27] MEDS ORDERED: DEXTROSE 40% GEL 15 GM TUBE PO PRN ×2 (22:22)
[2019-12-28] MEDS: INSULIN LISPRO 100 UNIT/ML 3 ML VIAL SUBCUT SCH ×4 (02:58→15:17)
[2019-12-28 04:17] LABS: ABSOLUTE BASOPHILS # (AUTO) 0.1 10^3/uL (0.0-0.2); ABSOLUTE LYMPHOCYTES (AUTO) 0.8 10^3/uL (0.5-4.7); ABSOLUTE MONOCYTES (AUTO) 0.6 10^3/uL (0.1-1.4); ABSOLUTE NEUT (AUTO) 7.3 10^3/uL (1.7-8.2); BASOPHILS % (AUTO) 0.6 % (0-2); HEMATOCRIT 42.8 % (37.9-51.0); HEMOGLOBIN 15.2 g/dL (13.5-17.0); LYMPHOCYTES % (AUTO) 9.2 % (13-45); MEAN CORPUSCULAR HEMOGLOBIN 30.8 pg (27.0-33.4); MEAN CORPUSCULAR HGB CONC 35.4 g/dL (32.0-36.0); MEAN CORPUSCULAR VOLUME 87 fl (80-97); MONOCYTES % (AUTO) 7.3 % (3-13); PLATELET COUNT 242 10^3/uL (150-450); RED BLOOD COUNT 4.92 10^6/uL (4.35-5.55); RED CELL DISTRIBUTION WIDTH 12.4 % (11.5-14.0); SEGMENTED NEUTROPHILS % (AUTO) 82.9 % (42-78); TOTAL CELLS COUNTED % (AUTO) 100 %; WHITE BLOOD COUNT 8.8 10^3/uL (4.0-10.5)
[2019-12-28 04:41] LABS: ANION GAP 10 (5-19); BLOOD UREA NITROGEN 23 mg/dL (7-20); C-REACTIVE PROTEIN 18.9 mg/L (<10.0); CALCIUM 8.9 mg/dL (8.4-10.2); CARBON DIOXIDE 25 mmol/L (22-30); CHLORIDE 103 mmol/L (98-107); GLUCOSE 250 mg/dL (75-110)
[2019-12-28] MEDS: METOPROLOL TARTRATE PF/INJ 5 MG/5 ML SDV IV SCH (05:25)
[2019-12-28] MEDS: ASCORBIC ACID 500 MG TABLET PO SCH ×3 (05:25→17:37)
[2019-12-28] MEDS ORDERED: ONDANSETRON HCL INJ/PF 4 MG/2 ML SDV IV ONE (05:28)
[2019-12-28 06:08] LABS: POTASSIUM 3.8 mmol/L (3.6-5.0)
[2019-12-28] MEDS ORDERED: ONDANSETRON HCL INJ/PF 4 MG/2 ML SDV ONE (06:09)
--- NOTE | 2019-12-28 06:30 | RADIOLOGY REPORT (SQ) ---
EXAM DESCRIPTION: XR ABDOMEN 1 VIEW (KUB) COMPLETED DATE/TME: 12/28/2019 05:27 CLINICAL HISTORY: new onset vomiting COMPARISON: None. FINDINGS: Bowel: No dilated loops of large or small bowel. Peritoneum: No free intraperitoneal air identified. Solid organs: No definite organomegaly. Calcifications: No abnormal calcifications. Bones: No acute osseous abnormalities. Other:Visualized lung bases are clear. Leads overlie the chest and abdomen. IMPRESSION: Nonobstructive bowel gas pattern.
[2019-12-28] MEDS ORDERED: CHOLECALCIFEROL (D3) 1,000 UNIT (25 MCG) TABLET PO SCH (10:00)
[2019-12-28] MEDS ORDERED: ZINC SULFATE 220 MG CAPSULE PO SCH (10:00)
--- NOTE | 2019-12-28 10:23 | PDOC CRITICAL CARE PROG REPORT ---
General Date:: 12/28/19 ICU Day:: 8 Hospital Day:: 9 Resuscitation Status: Full Code Events in the past 12 to 24 Hours:: Off precedex, more oriented. Review of systems relevant to events:: Respiratory, neuro. Reason for ICU Addmission:: Severe hypoxia with SARS, 2-CoViD19 and influenza A. Now hypoxia resolved. - Medications: Medications reviewed and adjusted accordingly: Yes Vasopressors:: None Sedation:: None Physical Exam Vital Signs: Temp Pulse Resp BP Pulse Ox 98.5 F 75 30 H 112/81 95 12/28/19 01:43 12/27/19 20:00 12/28/19 06:01 12/28/19 06:01 12/28/19 06:01 Intake & Output 12/27/19 12/28/19 12/29/19 06:59 06:59 06:59 Intake Total 620 640 Output Total 3315 1740 Balance -2695 -1100 Weight 78.9 kg 78.7 kg Weight/Height Weight 78.7 kg Height 5 ft 8 in General appearance: PRESENT: no acute distress, well-developed, well-nourished Head exam: PRESENT: atraumatic, normocephalic Eye exam: PRESENT: conjunctiva pink, EOMI, PERRLA. ABSENT: scleral icterus Ear exam: PRESENT: normal external ear exam Mouth exam: PRESENT: moist, tongue midline Respiratory exam: PRESENT: symmetrical, unlabored Cardiovascular exam: PRESENT: RRR. ABSENT: diastolic murmur, rubs, systolic murmur GI/Abdominal exam: PRESENT: normal bowel sounds, soft. ABSENT: distended, guarding, mass, organolmegaly, rebound, tenderness Rectal exam: PRESENT: deferred Extremities exam: PRESENT: full ROM. ABSENT: calf tenderness, clubbing, pedal edema Neurological exam: PRESENT: alert, awake, oriented to person, oriented to place, oriented to time, oriented to situation, CN II-XII grossly intact. ABSENT: motor sensory deficit Psychiatric exam: PRESENT: appropriate affect, normal mood, other - A bit slow to respond which may be a langauge barrier.. ABSENT: homicidal ideation, suicidal ideation Skin exam: PRESENT: dry, intact, warm. ABSENT: cyanosis, rash Laboratory/Radiographs Laboratory Results: 12/28/19 04:02 12/28/19 04:02 12/28/19 12/28/19 04:02 04:02 WBC 8.8 RBC 4.92 Hgb 15.2 Hct 42.8 MCV 87 MCH 30.8 MCHC 35.4 RDW 12.4 Plt Count 242 Seg Neutrophils % 82.9 H Sodium 137.6 Potassium 3.8 Chloride 103 Carbon Dioxide 25 Anion Gap 10 BUN 23 H Creatinine 0.55 Est GFR ( Amer) > 60 Glucose 250 H Calcium 8.9 Phosphorus 5.0 H Magnesium 2.5 H Ferritin 1700.00 H C-Reactive Protein 18.9 H 12/21/19 03:10 Creatine Kinase 593 H Impressions: Chest X-Ray 12/20/19 10:21 IMPRESSION: Interval placement of endotracheal tube, NG tube and central line as described. No pneumothorax. Support lines and tubes are in satisfactory position. Persistent diffuse bilateral pneumonia. KUB X-Ray 12/28/19 05:27 IMPRESSION: Nonobstructive bowel gas pattern. All labs, radiographs, diagnostic studies and EKGs were personally reviewed: Yes In addition, reports of radiographic and diagnostic studies were read: Yes Assessment and Plan - Diagnosis (1) Acute respiratory failure with hypoxia Is this a current diagnosis for this admission?: Yes Plan: This is resolved. The patient is on room air and can be downgraded to the medical floor (2) Bilateral pneumonia Qualifiers: Pneumonia type: due to unspecified organism Lung location: unspecified part of lung Qualified Code(s): J18.9 - Pneumonia, unspecified organism Is this a current diagnosis for this admission?: Yes Plan: He is both Covid positive and influenza A positive. PNA likely due to these two disorders. (3) COVID-19 virus detected Is this a current diagnosis for this admission?: Yes Plan: He will need to go to the 5th floor-covid floor. (4) Delirium due to another medical condition, acute, hyperactive Is this a current diagnosis for this admission?: Yes Plan: Much improved. Off precedex. (5) Influenza A Is this a current diagnosis for this admission?: Yes Plan Summary: OK to downgrade today. Critical Time Critical Time (minutes): 30 Level of Care: MEDICAL Anticipated discharge: Home Within: within 72 hours -: 1. The care of a critical patient is a dynamic process. This note is a repr esentative synopsis but static in nature. The timeframe for treatments given in order is not necessarily the actual time these treatments may have been done. 2. This patient requires critical care secondary to ongoing requirements for therapy not offered or safe outside the critical care environment. Transfer to a lower level of care will result in altered life or limb morbidity and mortality. 3. Multidisciplinary rounds completed. 4. ABCDE bundle addressed.
[2019-12-28] MEDS: AMLODIPINE BESYLATE 5 MG TABLET PO SCH ×2 (10:49→21:04)
[2019-12-28] MEDS: METHYLPREDNISOLONE INJ 40 MG/1 ML SDV IV SCH ×2 (10:49→21:04)
[2019-12-28] MEDS: ENOXAPARIN SODIUM INJ 40 MG/0.4 ML DISP.SYRIN SUBCUT SCH (10:49)
[2019-12-28] MEDS: INSULIN GLARGINE,HUM.REC.ANLOG 1,000 UNIT/10 ML VIAL SUBCUT SCH (10:50)
--- NOTE | 2019-12-28 13:53 | Progress Note ---
Provider Note Provider Note: I received the downgrade transfer from the intensive care unit. Reviewed the notes from the patient's intensive care stay as well as the progress note from this morning. I discussed the case with Dr. Pan. I will coordinate with the nurses once the patient arrives on the fifth floor. The patient is positive for COVID and as he was seen already today by the stock or delivery clerk I will hold off on a bedside visit for today. I have ordered blood work in anticipation of tomorrow's visit.
[2019-12-28] MEDS ORDERED: METOPROLOL TARTRATE PF/INJ 5 MG/5 ML SDV IV PRN (16:55)
[2019-12-28] MEDS ORDERED: MELATONIN 5 MG TABLET PO SCH (22:00)
[2019-12-28] MEDS ORDERED: METOPROLOL TARTRATE 25 MG TABLET PO SCH (22:00)
[2019-12-28] MEDS ORDERED: INSULIN LISPRO 100 UNIT/ML 3 ML VIAL SUBCUT SCH (22:00)
[2019-12-29 00:23] VITALS: BP 112/73
--- NOTE | 2019-12-29 06:52 | Left Against Medical Advice ---
Against Medical Advice Admission Date/Time: 12/19/19 00:20 Primary Care Provider: Date of Patient Emigration: 12/29/19 - Diagnosis: (1) Multifocal pneumonia Is this a current diagnosis for this admission?: Yes (2) Acute respiratory failure with hypoxia Is this a current diagnosis for this admission?: Yes (3) Influenza A Is this a current diagnosis for this admission?: Yes (4) Diabetes mellitus type 2 in obese Is this a current diagnosis for this admission?: Yes - Summary: Summary: Please see Admission and Progress Notes as well. LUIS HOOVER is a 39 M, who LEFT AGAINST MEDICAL ADVICE. The Patient was admitted on 12/19/19 00:20.
== END 2019-12-29 00:08 | disposition left against medical advice (07) | DRG 207 ==
LOC: EDSEX → ER 19:42 → EH 12-19 00:20 → 5 12-19 01:55 → ICU 12-20 09:12 → 5 12-28 12:57
PROVIDERS: ADMIT Internal Medicine Critical Care Medicine; ATTEND Hospitalist
PROC: 5A1955Z Respiratory Ventilation, Greater than 96 Consecutive Hours (ICD-10-PCS; principal; 2019-12-20)
PROC: 0BH17EZ Insertion of Endotracheal Airway into Trachea, Via Natural or Artificial Opening (ICD-10-PCS; 2019-12-20)
PROC: 02HV33Z Insertion of Infusion Device into Superior Vena Cava, Percutaneous Approach (ICD-10-PCS; 2019-12-20)
PROC: 03HY32Z Insertion of Monitoring Device into Upper Artery, Percutaneous Approach (ICD-10-PCS; 2019-12-20)
DX: U07.1 COVID-19 (principal); J10.08 Influenza due to other identified influenza virus with other specified pneumonia; J96.01 Acute respiratory failure with hypoxia; J12.81 Pneumonia due to SARS-associated coronavirus; J12.89 Other viral pneumonia; E11.9 Type 2 diabetes mellitus without complications; Z78.1 Physical restraint status; Z60.2 Problems related to living alone; E66.01 Morbid (severe) obesity due to excess calories; I10 Essential (primary) hypertension; R41.0 Disorientation, unspecified
CPT/HCPCS: 31500; 36415; 36556; 36620; 71045; 74018; 80048; 80053; 80061; 81001; 82140; 82550; 82728; 82803; 82962; 83036; 83050; 83520; 83605; 83735; 84100; 84145; 84260; 85025; 85379; 85384; 85610; 85730; 86140; 86141; 86701; 87040; 87070; 87077; 87150; 87205; 87252; 87486; 87536; 87581; 87633; 87635; 87798; 87804; 87880; 93005; 93010; 94002; 94003; 96361; 96374; 99231; 99284; 99291; 99292; C1887; J0360; J0456; J0696; J1170; J1630; J1644; J1650; J1815; J1940; J2020; J2060; J2185; J2250; J2405; J2550; J2704; J2920; J2930; J3010; J3370; J3411; J3490; J7030; J7050; J7060; J7120; S0028